=== PATIENT | female | born 1995 | race Caucasian/White ===

== ENCOUNTER 2021-03-10 19:27 | Outpatient (REF) | payer OTHER, SELFPAY | END 2021-03-10 19:28 | disposition home or self-care (01) | LOC: HO.LNP 19:27 | PROVIDERS: Visit Provider Hospitalist | DX: Z20.822 Contact with and (suspected) exposure to COVID-19 (principal) | CPT/HCPCS: U0003; U0005 ==

== ENCOUNTER 2024-03-28 20:34 | Emergency (ER) | payer OTHER, SELFPAY ==
[2024-03-28 20:51] VITALS: BP 123/97; PULSE 79; RESP 18; TEMP 36.8; O2SAT 100; BMI 26.3
--- NOTE | 2024-03-28 20:59 | ED_ITS ---
HPI - Skin/Abscess/Foreign Bdy General Chief complaint: Skin/Abscess/Foreign Body Stated complaint: Shingles? Time Seen by Provider: 03/28/24 20:44 Source: patient Mode of arrival: ambulatory Limitations: no limitations History of Present Illness ED Provider: Tracy Goldstein NP HPI narrative: Patient is a 28-year-old female presents emergency department for evaluation of a painful vesicular rash to the left clavicular region close to the midline that is beginning to scab it is quite painful and itchy, also with red bumps to the left upper chest. Denies any fevers or chills. No recent medications or contact exposures. Admits to a history of chickenpox as a child Related Data Previous Rx's ?Medication ?Instructions ?Recorded valacyclovir 1 gram tablet 1,000 mg PO TID 7 days #21 tabs 03/28/24 Allergies Allergy/AdvReac Type Severity Reaction Status Date / Time Seasonal Allergies Allergy Mild runny nose Verified 03/28/24 20:55 Review of Systems Review of Systems: Yes all other systems are reviewed and are negative PMFSH Past Medical History Attestation statement: The following information was validated with the patient. Source: old records reviewed Social History Social History (System 12/31/22 @ 13:54 by No Melendez) Patient Tobacco Use Status: Never used Tobacco Physical Exam Vital Signs: Vital Signs: Last Vital Signs Temp 98.3 F 03/28/24 20:51 Pulse 79 03/28/24 20:51 Resp 18 03/28/24 20:51 BP 123/97 H 03/28/24 20:51 Pulse Ox 100 03/28/24 20:51 O2 Del Method Room Air 03/28/24 20:51 BMI result Body Mass Index 26.3 Appearance: Alert.?Oriented to person, place and time. No acute distress.?Normal affect. Eyes: Pupils equal, round and reactive to light.? ENT: Pharynx normal.?? Neck: Normal inspection.? Neck supple.?? CVS: Heart sounds normal. Normal heart rate and rhythm.? Pulses normal.?? Respiratory: No respiratory distress.? Lung sounds clear to auscultation bilaterally? Skin: Skin warm and dry.? Normal skin color.? The left supraclavicular region has a cluster of scabbed vesicular eruptions on an erythematous base painful to touch on the C4 dermatome, early erythematous papular eruption painful to palpation at C5 dermatome Extremities: No lower extremity edema.? Neuro: Moves all extremities spontaneously. Sensation intact bilaterally. . No focal neuro deficits. Ambulates with normal steady gait. Medical Decision Making Medical Decision Making MDM Narrative: Patient is a 28-year-old female who presents emergency department for evaluation of a painful vesicular eruption to the left anterior chest as per HPI, physical exam findings consistent with herpes zoster of C4-C5 dermatome. Onset 3 days ago, though the C5 dermatome appears to be new interruption with onset yesterday evening as per patient's report. Received 1st dose of valacyclovir in the emergency department, sent remainder prescription for 7 day course to pharmacy. Discussed precautions for potential exposure, potential for post herpetic neuralgia. Presentation appears less consistent with small pox/monkey pox, no indication for sexually transmitted infection that would suggest summated gonococcal disease, no addition skin rashes or lesions or bleeding, not consistent with [id number] disease. There suspicion for contact dermatitis/folliculitis. No evidence of systemic illness, or disseminated zoster. Differential Diagnosis Differential Diagnoses: The differential diagnosis associated with the presentation includes (See narrative above) External Record Review External record reviewed: Outpatient record Prescription Management I considered prescription management with: Antiviral Discharge Plan Discharge Clinical Impression: Herpes zoster Patient Disposition: Home, Self-Care Instructions: Shingles (ED) Additional Instructions: While taking the valacyclovir please be certain that you are staying well hydrated, side effects can often include nausea, diarrhea, and headache which is typically worse when dehydrated. As discussed, the rash did not cross over to the right side of your body nor should it scab over a portion of the body and show up on the leg subsequently. Some people can develop chronic nerve pain if the medication is started late after its onset. Follow-up with your primary care doctor. Return to emergency department any new or worsening symptoms or concerns. The rash from shingles itself is not contagious, however direct contact with any fluid that may come out of the rash/blisters can result in the virus being spread to others particularly those who have never had chickenpox or never received the chickenpox vaccine. They will subsequently developed chickenpox not shingles. You should avoid children who have not received vaccination, women, or mother's. Prescriptions: New valacyclovir 1 gram tablet 1,000 mg PO TID 7 Days Qty: 21 0RF Print Language: Lithuanian
[2024-03-28] MEDS: valACYclovir HCL 1,000 MG TABLET 1000 MG PO (21:20)
--- OUTSIDE RECORDS SUMMARY | 2024-03-28 21:23 | XMS_ITS | Patient Health Record ---
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 Name Role Phone DANISH LIRIANO Unavailable [phone] OSMANIAN CHRISTIE Unavailable [phone] ALLERGIES No Known Allergies RESULTS Component Value Reference Range Notes TSH Reviewed date:12/07/2023 01:39:57 PM Interpretation: Performing Lab: Notes/Report: TSH 0.54 0.40-4.00 uIU/ml VITAMIN D, 25-HYDROXY Reviewed date:12/07/2023 01:39:57 PM Interpretation: Performing Lab: Notes/Report: VITAMIN D, 25-HYDROXY 15 30-80 ng/mL LIPID PROFILE Reviewed date:12/07/2023 01:39:57 PM Interpretation: Performing Lab: Notes/Report: CHOLESTEROL 166 0-200 mg/dL TRIGLYCERIDES 76 0-150 mg/dL CBC WITH AUTO DIFF Reviewed date:12/07/2023 01:58:39 PM Interpretation: Performing Lab: Notes/Report: WBC 5.8 4.8-10.8 x10-3/uL RBC 4.4 3.8-4.8 x10-6/uL HEMOGLOBIN 13.1 11.5-16.0 g/dL HEMATOCRIT 39.8 35-47 % MCV 90.9 79-98 fL MCH 29.9 27-32 pg MCHC 32.9 32-37 g/dL RDW 13.5 11-15 % PLT COUNT 365 130-400 x10-3/uL MEAN PLATELET VOLUME 9.6 7-11 fL NRBC % AUTO 0.0 <1 % NRBC # AUTO 0.00 <0.1 x10-3/uL COMPREHENSIVE METABOLIC PANE L Reviewed date:12/07/2023 01:39:57 PM Interpretation: Performing Lab: Notes/Report: Note Original Orderi ng Provider: DANISH LIRIANO NP GLUCOSE 84 70-100 mg/dL Reference range applicable to fasting specimens only BUN 8 5-25 mg/dL CREAT 0.78 0.5-1.1 mg/dL GLOMERULAR FILTRATION RATE 105 >60 This eGFR result was calculated using the CKD-EPI 2020 Creatinine Equation SODIUM 136 135-145 mEq/L POTASSIUM 4.3 3.5-5.5 mmol/L CHLORIDE 103 96-110 mmol/L CO2 28 21-32 mmol/L ANION GAP 5 3-11 CALCIUM 9.6 8.5-10.5 mg/dL TOTAL PROTEIN 8.0 6.0-8.0 G/dL ALBUMIN 4.2 3.2-5.0 G/dL BILI,TOTAL 0.7 0.0-1.4 mg/dL SGOT 20 10-42 U/L SGPT 20 10-60 U/L ALK PHOS 53 42-121 U/L GLYCOHEMOGLOBIN PROFILE Reviewed date:12/07/2023 02:29:18 PM Interpretation: Performing Lab: Notes/Report: GLYCATED HEMOGLOBIN A1C 5.5 <6.5 % ESTIMATED AVERAGE GLUCOSE 111 URINALYSIS Reviewed date:12/07/2023 01:02:23 PM Interpretation: Performing Lab: Notes/Report: Note Original Ordering Provider: DANISH LIRIANO NP [employer] [place] [address] Slp - Cece Escudero MD GLUCOSE, (UA) NEGATIVE NEGATIVE mg/dL BILIRUBIN, URINE NEGATIVE NEGATIVE KETONE, URINE TRACE NEGATIVE mg/dL SPECIFIC GRAVITY, URINE 1.022 1.003-1.030 BLOOD, URINE NEGATIVE NEGATIVE PH, URINE 7.0 5.0-8.0 PROTEIN, URINE TRACE <= TRACE mg/dl UROBILINOGEN, URINE 1.0 0.2-1.0 E.U./dL NITRITE, URINE NEGATIVE NEGATIVE LEUKOCYTE ESTERASE, URINE NEGATIVE NEGATIVE Note Original Ordering Provider: DANISH LIRIANO NP [employer] [address] Slp - Cece Escudero MD REASON FOR REFERRAL No Information MEDICATIONS Medication SIG (Take, Route, Frequency, Duration) Notes Start Date End Date Status Topiramate 25 MG 1 tablet Orally Once a day for 30 days 03/03/2024 Active Inflectra 100 MG as directed Intravenous Active Zepbound 15 MG/0.5ML 12.5mg Subcutaneous weekly for 30 days Active Zepbound 10 MG/0.5ML inject 10mg Subcutaneous once a week for 30 days PA approved ok to increase to 10mg from 7.5mg 07/21/2023 Not-Taking Ondansetron HCl 8 MG 1 tablet as needed Orally Once a day for 30 days Not-Taking IMMUNIZATIONS Vaccine Route Administration Date Status Comme nts influenza IM Intramuscular 02/02/2024 Administered SOCIAL HISTORY Tobacco Use: Social History Observation Description Date Details (start date - stop date) Never Smoker NA - NA Sex Assigned At : Social History Observation Description Sex Assigned At Unknown Tobacco Use/Smoking Question Answer Notes Are you a nonsmoker Section Notes: 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 safety PROBLEMS Problem Type ICD Code Onset Dates Problem Status W/U Status Risk SNOMED Code Notes Problem Vitamin D deficiency, unspecified (E55.9) Active confirmed 15104784 Problem Other obesity due to excess calories (E66.09) Active confirmed 752785236 Problem Overweight (E66.3) Active confirmed 392764251 Problem Encounter for general adult medical examination without abnormal findings (Z00.00) Active confirmed 120180380 Problem Encounter for screening for diabetes mellitus (Z13.1) Active confirmed 574381064 Problem Encounter for screening for lipoid disorders (Z13.220) Active confirmed 677272351 Problem Encounter for screening for other suspected endocrine disorder (Z13.29) Active confirmed 148018939 Problem Obesity (BMI 30-39.9) (E66.9) Active confirmed Obesity (857664226) Problem BMI 32.0-32.9,adult (Z68.32) Active confirmed BMI 30+ - obesi ty (571335663) Problem Body mass index [BMI] 30.0-30.9, adult (Z68.30) Active confirmed 370663821 Problem Ulcerative colitis without complications, unspecified location (K51.90) Active confirmed Ulcerative colitis (97259680) Problem Screening for cardiovascular condition (Z13.6) Active confirmed Screening for cardiovascular system disease (639694341) VITAL SIGNS Heart Rate 92 /min 03/03/2024 Oximetry 98 % 03/03/2024 Blood pressure diastolic 70 mm Hg 03/03/2024 Height 68 in 03/03/2024 Blood pressure systolic 100 mm Hg 03/03/2024 Weight 180 lbs 03/03/2024 BMI 27.37 kg/m2 03/03/2024 Encounters Encounter Location Date Provider Diagnosis [place] [address] 03/30/2023 DANISH MEZAT [place] [address] 10/07/2023 DANISH LIRIANO BMI 29.0-29.9,adult Z68.29 ; Overweight (BMI 25.0-29.9) E66.3 and Dietary counseling and surveillance Z71.[address] 05/12/2023 DANISH LIRIANO Other obesity due to excess calories E66.09 and Body mass index [BMI] 30.0-30.9, adult Z68.30 [place] [address] 08/10/2023 DANISH LIRIANO Overweight (BMI 25.0-29.9) E66.3 ; BMI 29.0-29.9,adult Z68.29 and Dietary counseling and surveillance Z71.[address] 12/07/2023 DANISH LIRIANO BMI 27.0-27.9,adult Z68.27 ; Overweight (BMI 25.0-29.9) E66.3 and Dietary counseling and surveillance Z71.[address] 12/09/2023 DANISH LIRIANO Overweight (BMI 25.0-29.9) E66.3 ; Annual physical exam Z00.00 ; BMI 29.0-29.9,adult Z68.29 ; Dietary counseling and surveillance Z71.3 and High risk heterosexual behavior Z72.[address] [address] 01/03/2024 AN ERIC Overweight E66.3 ; B [place] 27.0-27.9,adult Z68.27 and Nutritional counseling Z71.[address] [place] [address] 02/02/2024 AN ERIC BMI 27.0-27.9,adult Z68.27 ; Overweight E66.3 ; Nutritional counseling Z71.3 and Encounter for immunization Z23 [address] [facility] [address] [place], [place] 03/03/2024 AN ERIC BMI 27.0-27.9,adult Z68.27 ; Nutritional counseling Z71.3 and Overweight E66.3 [facility] [address] [place] [address] 04/21/2023 [facility] [address] [facility] [address] [facility] [address] [place] [address] 04/26/2023 [facility] [address] [facility] [address] [facility] [address] [place], [place] 05/20/2023 [facility] [address] [place] [address] 05/21/2023 [facility] [address] [place] [address] 06/17/2023 [facility] [address] [address] 07/21/2023 [facility] [address] [place] [address] 07/21/2023 [facility] [address] [place] [address] 07/23/2023 [facility] [address] [place] [address] 08/10/2023 [facility] Encounter for genera l adult medical examination without abnormal findings Z00.00 ; Encounter for screening for diabetes mellitus Z13.1 ; Encounter for screening for lipoid disorders Z13.220 ; Vitamin D deficiency, unspecified E55.9 and Encounter for screening for other suspected endocrine disorder Z13.29 [facility] [address] [place] [address] 08/17/2023 DANISH BORHOT Overweight (BMI 25.0-29.9) E66.3 [facility] [address] [place] [address] 09/20/2023 DANISH BORHOT Overweight (BMI 25.0-29.9) E66.3 [facility] [address] [place] [address] 09/20/2023 DANISH BORHOT Overweight (BMI 25.0-29.9) E66.3 [facility] [address] [place], [place] [address] 10/07/2023 DANISH BORHOT [facility] [address] [place] [address] 10/20/2023 DANISH BORHOT Overweight (BMI 25.0-29.9) E66.3 [facility] [address] [place] [address] 10/21/2023 DANISH BORHOT Overweight (BMI 25.0-29.9) E66.[address] [place] [address] 11/09/2023 DANISH BORHOT [facility] [address] [facility] [address] 12/16/[address] [place] [address] 01/03/2024 DAINSH BORHOT Overweight (BMI 25.0-29.9) E66.3 ASSESSMENTS Encounter Date Diagnosis Assessment Notes Treatment Notes Treatment Clinical Notes Section Notes 05/12/2023 Other obesity due to excess calories (ICD-10 - E66.09) Total time spent today was 30 minutes of which greater than 50% was spent on coordinating and counseling Weight management 05/12/2023 Currently on Wegovy 1.7, Interested in increasing to 2.4 for more appetite suppression Interested in changing perhaps to Zepbound Discussed dual incretin's and will check insurance to see which other GLP-1 GIP's are covered Patient has been found to be obese with a BMI of (30). Patient has class (1) obesity. We are a board certified obesity and weight management practice Patient has trialed behavioral modification, dietary restrictions and exercise for a minimum of 6 months The most recent [place] [employer] clinical endocrinologists and [place] [employer] guidelines recommend patients who have overweight BMI or obesity BMI, who also have metabolic syndrome, prediabetes, or at risk of developing type 2 diabetes should aim for a weight loss goal of at least 10% of the baseline body weight Patient counseled regarding effects of GLP/GIP-1 agonists, and other FDA approved wgt loss meds with regards to a multifactorial approach of weight loss as mentioned above and not solely appetite suppression. We have discussed the mechanism of GLP-1's/GIP, dual incretins, appetitite suppressants I think this would be fantastic option for her given her metabolic workup and body composition We have discussed the risks and benefits and side effects including/and not limited to Sarcopenia, intestinal obstruction, constipation, nausea, lethargy, headache Discussed importance of protein consumption for muscle maintenance as well as strength and resistance training ,probiotics, B12 complex biotin , iron and other nutrients, To help avoid telogen effluvium We have discussed the lifelong requirement of nutritional supplementation And adherence to an exercise regimen as well as importance of follow-up The patient understands and agrees There is no history of medullary thyroid cancer or multiple endocrine neoplasia There is also no history of cardiovascular disease, hypertension, palpitations, or arrhythmias In the setting of potential stimulant/amphetamine use such as phentermine We have also discussed risks and benefits, and the use of compounded medications to help offset the national shortages as well as financial implications vs trade name drugs Patient was reassured and welcomed to the practice. We discussed that we stress a hollistic medical approach with emphasis on lifestyle modification. Patient was informed that a healthy lifestyle with exercise and good eating habits can help reduce his risk of medical complications. He is explained that obesity increases his risk of diabetes, cardiovascular disease, or organ damage. We spent a lot of time discussing the relationship between food, exercise, sleep, mental health and obesity. Patient was counseled on the importance EATING local, organic food when possible. Patient was educated on clean 15 and dirty dozen. I provided information about reading books called The Food Rules by Julian Álvarez and Eat Fat Get Lean by Dr Madhu Ramos. Self education is important in the journey for weight management. Patient was offered diagnostic testing. We want to measure visceral adiposity, advanced body composition, adverse lipids, fatty acid balance, risk for heart disease and atherosclerosis, markers of inflammation and genetic susceptibility. Patient was counseled on weight management and was advised to lose weight using A. Meal Replacement Products We discussed the lifelong requirement of nutritional supplementation and adherence to an exercise regimen as well as importance of dietary follow-up Patient was educated on the replacement products called optifast. This is a good way of taking fixed amount of calories. It has been shown in studies to be ineffective weight management tool. We also recommend maintaining adequate protein intake and muscle composition, 1.5mg/kg This however has to be coupled with lifestyle intervention as well as laboratory data and EKG monitoring. It is impossible to know how a person will tolerate complete meal replacement. The side effects of meal replacement and weight loss could include syncopal attacks, dizziness, gallstones, potential cholecystectomy, possible heart attack and even . The benefits of meal replacement would be potential weight loss but no guarantees can be made. Meal replacement products are not covered by insurance. Once the patient has bought these products we cannot return them B. Lifestyle management which includes several strategies as below 1. Eat a low carbohydrate good fat good protein diet. Eliminate refined carbohydrates from the diet. Continue blood sugar and sugared beverages. Eat local organic when possible. Cook your own meals. Read food labels. None about healthy snacks. Portion control and food with low glycemic index 2. Exercise regularly. Try to get at least 6000 steps a day. Use a predominant to track activity level. Consider using apps like Profyle, myfitnesspal, lose it, stick as needed for self-monitoring and weight management. Consider group exercises. Consider hiring a tangible personal property appraiser. Regular exercise is persaud to sustainable health and prevents as a buffer against weight regain 3. Sleep is most important for healing. Tried to sleep at least 8 hours a night. A good quality sleep needs a sleep ritual with ideal room temperature of around 68. It might help to take a shower and have no electronics in the room and sleep in a very dark room without artificial light. Start her sleep routine and get up early in the morning and go to bed on time 4. Make a social connection. Surround yourself with positive people with positive energy. Connect with friends and family. 5. Get into the habit of meditating and mindfulness while doing everything. 6. Go outside and connect with nature. C. Prescription medications Patient was educated on the use of prescription medications for medical weight loss. This is a growing list and includes phentermine, Topamax,Qsymia, contrave, belviq and saxenda. All prescription medications could have side effects including but not limited to kidney stones, seizure disorder cardiac arrhythmias heart attack pancreatitis etc. etc.. Patient was encouraged to read the prescription insert and have coaching with their pharmacist and make an informed decision about taking medication and know that these medications are being prescribed with good intentions and we do not know how a patient would react to her medication. Sudden medications are FDA approved for weight loss and there is also off label use depending on patient's inability to afford medications in an attempt to lose weight D. Behavioral counseling was done to establish a relationship between food and an mood. Patient was provided information about local counseling and psychiatry and Dr Ryan at [facility]. We would like to cover regular topics and build on low glycemic eating exercise mindful eating, using yoga and meditation along with deep breathing and connecting with friends and family. E. MASS PAT reviewed, Patient's current medications were reviewed and opinion was given on medication that can cause weight gain and can be substituted F. Patient was assessed for risk with obesity including and not limiting to atherosclerosis heart disease stroke kidney disease, restrictive lung disease, irritable bowel syndrome and overall mortality. Risk of developing prediabetes diabetes and metabolic syndrome was discussed G. Therapeutic plan: We have decided to make therapeutic plan which would include choosing wisely on calories restricting portion getting active, tracking weight, getting good quality sleep and working on time management H. Patient will follow up in (4) weeks for weight management Of note, some information is being carried forward from prior records for informational purposes only and is being cited so that efficiency, safety and quality of the patient's care is not compromised This note was prepared using voice recognition software and direct typing Please excuse inadvertent hrbp or typing errors, or uncorrected word substitutions Although every attempt has been made by the provider to proofread this document, occasional misspellings and typographical errors may still be present Due to the previous pandemic, and the use of personal protective equipment (PPE) This may decrease voice recognition accuracy Inadvertent hrbp errors may occur 05/12/2023 Body mass index [BMI] 30.0-30.9, adult (ICD-10 - Z68.30) Total time spent today was 30 minutes of which greater than 50% was spent on coordinating and counseling Weight management 05/12/2023 Currently on Wegovy 1.7, Interested in increasing to 2.4 for more appetite suppression Interested in changing perhaps to Zepbound Discussed dual incretin's and will check insurance to see which other GLP-1 GIP's are covered Patient has been found to be obese with a BMI of (30). Patient has class (1) obesity. We are a board certified obesity and weight management practice Patient has trialed behavioral modification, dietary restrictions and exercise for a minimum of 6 months The most recent [place] [employer] clinical endocrinologists and [place] [employer] guidelines recommend patients who have overweight BMI or obesity BMI, who also have metabolic syndrome, prediabetes, or at risk of developing type 2 diabetes should aim for a weight loss goal of at least 10% of the baseline body weight Patient counseled regarding effects of GLP/GIP-1 agonists, and other FDA approved wgt loss meds with regards to a multifactorial approach of weight loss as mentioned above and not solely appetite suppression. We have discussed the mechanism of GLP-1's/GIP, dual incretins, appetitite suppressants I think this would be fantastic option for her given her metabolic workup and body composition We have discussed the risks and benefits and side effects including/and not limited to Sarcopenia, intestinal obstruction, constipation, nausea, lethargy, headache Discussed importance of protein consumption for muscle maintenance as well as strength and resistance training ,probiotics, B12 complex biotin , iron and other nutrients, To help avoid telogen effluvium We have discussed the lifelong requirement of nutritional supplementation And adherence to an exercise regimen as well as importance of follow-up The patient understands and agrees There is no history of medullary thyroid cancer or multiple endocrine neoplasia There is also no history of cardiovascular disease, hypertension, palpitations, or arrhythmias In the setting of potential stimulant/amphetamine use such as phentermine We have also discussed risks and benefits, and the use of compounded medications to help offset the national shortages as well as financial implications vs trade name drugs Patient was reassured and welcomed to the practice. We discussed that we stress a hollistic medical approach with emphasis on lifestyle modification. Patient was informed that a healthy lifestyle with exercise and good eating habits can help reduce his risk of medical complications. He is explained that obesity increases his risk of diabetes, cardiovascular disease, or organ damage. We spent a lot of time discussing the relationship between food, exercise, sleep, mental health and obesity. Patient was counseled on the importance EATING local, organic food when possible. Patient was educated on clean 15 and dirty dozen. I provided information about reading books called The Food Rules by Julian Álvarez and Eat Fat Get Lean by Dr Madhu Ramos. Self education is important in the journey for weight management. Patient was offered diagnostic testing. We want to measure visceral adiposity, advanced body composition, adverse lipids, fatty acid balance, risk for heart disease and atherosclerosis, markers of inflammation and genetic susceptibility. Patient was counseled on weight management and was advised to lose weight using A. Meal Replacement Products We discussed the lifelong requirement of nutritional supplementation and adherence to an exercise regimen as well as importance of dietary follow-up Patient was educated on the replacement products called optifast. This is a good way of taking fixed amount of calories. It has been shown in studies to be ineffective weight management tool. We also recommend maintaining adequate protein intake and muscle composition, 1.5mg/kg This however has to be coupled with lifestyle intervention as well as laboratory data and EKG monitoring. It is impossible to know how a person will tolerate complete meal replacement. The side effects of meal replacement and weight loss could include syncopal attacks, dizziness, gallstones, potential cholecystectomy, possible heart attack and even . The benefits of meal replacement would be potential weight loss but no guarantees can be made. Meal replacement products are not covered by insurance. Once the patient has bought these products we cannot return them B. Lifestyle management which includes several strategies as below 1. Eat a low carbohydrate good fat good protein diet. Eliminate refined carbohydrates from the diet. Continue blood sugar and sugared beverages. Eat local organic when possible. Cook your own meals. Read food labels. None about healthy snacks. Portion control and food with low glycemic index 2. Exercise regularly. Try to get at least 6000 steps a day. Use a predominant to track activity level. Consider using apps like Profyle, myfitnesspal, lose it, stick as needed for self-monitoring and weight management. Consider group exercises. Consider hiring a tangible personal property appraiser. Regular exercise is persaud to sustainable health and prevents as a buffer against weight regain 3. Sleep is most important for healing. Tried to sleep at least 8 hours a night. A good quality sleep needs a sleep ritual with ideal room temperature of around 68. It might help to take a shower and have no electronics in the room and sleep in a very dark room without artificial light. Start her sleep routine and get up early in the morning and go to bed on time 4. Make a social connection. Surround yourself with positive people with positive energy. Connect with friends and family. 5. Get into the habit of meditating and mindfulness while doing everything. 6. Go outside and connect with nature. C. Prescription medications Patient was educated on the use of prescription medications for medical weight loss. This is a growing list and includes phentermine, Topamax,Qsymia, contrave, belviq and saxenda. All prescription medications could have side effects including but not limited to kidney stones, seizure disorder cardiac arrhythmias heart attack pancreatitis etc. etc.. Patient was encouraged to read the prescription insert and have coaching with their pharmacist and make an informed decision about taking medication and know that these medications are being prescribed with good intentions and we do not know how a patient would react to her medication. Sudden medications are FDA approved for weight loss and there is also off label use depending on patient's inability to afford medications in an attempt to lose weight D. Behavioral counseling was done to establish a relationship between food and an mood. Patient was provided information about local counseling and psychiatry and Dr Ryan at [facility]. We would like to cover regular topics and build on low glycemic eating exercise mindful eating, using yoga and meditation along with deep breathing and connecting with friends and family. E. MASS PAT reviewed, Patient's current medications were reviewed and opinion was given on medication that can cause weight gain and can be substituted F. Patient was assessed for risk with obesity including and not limiting to atherosclerosis heart disease stroke kidney disease, restrictive lung disease, irritable bowel syndrome and overall mortality. Risk of developing prediabetes diabetes and metabolic syndrome was discussed G. Therapeutic plan: We have decided to make therapeutic plan which would include choosing wisely on calories restricting portion getting active, tracking weight, getting good quality sleep and working on time management H. Patient will follow up in (4) weeks for weight management Of note, some information is being carried forward from prior records for informational purposes only and is being cited so that efficiency, safety and quality of the patient's care is not compromised This note was prepared using voice recognition software and direct typing Please excuse inadvertent hrbp or typing errors, or uncorrected word substitutions Although every attempt has been made by the provider to proofread this document, occasional misspellings and typographical errors may still be present Due to the previous pandemic, and the use of personal protective equipment (PPE) This may decrease voice recognition accuracy Inadvertent hrbp errors may occur 08/10/2023 BMI 29.0-29.9,adult (ICD-10 - Z68.29) #Weight Management 08/10/2023 Thriving on dual incretin's She has left the obesity world and we have congratulated her Continue 10 milligrams with potential of increasing in the next coming weeks to 12.5 Total time spent today was 30 minutes of which greater than 50% was spent on coordinating and counseling Patient has been found to be overweight with a BMI of (29). Patient has overweight class per BMI standards We are a board certified obesity and weight management practice Patient has trialed behavioral modification, dietary restrictions and exercise for a minimum of 6 months The most recent [place] [employer]ocrin[employer] and [place] [employer] guidelines recommend patients who have overweight BMI or obesity BMI, who also have metabolic syndrome, prediabetes, or at risk of developing type 2 diabetes should aim for a weight loss goal of at least 10% of the baseline body weight Patient counseled regarding effects of GLP/GIP-1 agonists, and other FDA approved wgt loss meds with regards to a multifactorial approach of weight loss as mentioned above and not solely appetite suppression. We have discussed the mechanism of GLP-1's/GIP, dual incretins, appetitite suppressants I think this would be fantastic option for her given her metabolic workup and body composition We have discussed the risks and benefits and side effects including/and not limited to Sarcopenia, intestinal obstruction, constipation, nausea, lethargy, headache Discussed importance of protein consumption for muscle maintenance as well as strength and resistance training ,probiotics, B12 complex biotin , iron and other nutrients, To help avoid telogen effluvium We have discussed the lifelong requirement of nutritional supplementation And adherence to an exercise regimen as well as importance of follow-up The patient understands and agrees There is no history of medullary thyroid cancer or multiple endocrine neoplasia There is also no history of cardiovascular disease, hypertension, palpitations, or arrhythmias In the setting of potential stimulant/amphetamine use such as phentermine We have also discussed risks and benefits, and the use of compounded medications to help offset the national shortages as well as financial implications vs trade name drugs Patient was reassured and welcomed to the practice. We discussed that we stress a hollistic medical approach with emphasis on lifestyle modification. Patient was informed that a healthy lifestyle with exercise and good eating habits can help reduce his risk of medical complications. He is explained that obesity increases his risk of diabetes, cardiovascular disease, or organ damage. We spent a lot of time discussing the relationship between food, exercise, sleep, mental health and obesity. Patient was counseled on the importance EATING local, organic food when possible. Patient was educated on clean 15 and dirty dozen. I provided information about reading books called The Food Rules by Julian Álvarez and Eat Fat Get Lean by Dr Madhu Ramos. Self education is important in the journey for weight management. Patient was offered diagnostic testing. We want to measure visceral adiposity, advanced body composition, adverse lipids, fatty acid balance, risk for heart disease and atherosclerosis, markers of inflammation and genetic susceptibility. Patient was counseled on weight management and was advised to lose weight using A. Meal Replacement Products We discussed the lifelong requirement of nutritional supplementation and adherence to an exercise regimen as well as importance of dietary follow-up Patient was educated on the replacement products called optifast. This is a good way of taking fixed amount of calories. It has been shown in studies to be ineffective weight management tool. We also recommend maintaining adequate protein intake and muscle composition, 1.5mg/kg This however has to be coupled with lifestyle intervention as well as laboratory data and EKG monitoring. It is impossible to know how a person will tolerate complete meal replacement. The side effects of meal replacement and weight loss could include syncopal attacks, dizziness, gallstones, potential cholecystectomy, possible heart attack and even . The benefits of meal replacement would be potential weight loss but no guarantees can be made. Meal replacement products are not covered by insurance. Once the patient has bought these products we cannot return them B. Lifestyle management which includes several strategies as below 1. Eat a low carbohydrate good fat good protein diet. Eliminate refined carbohydrates from the diet. Continue blood sugar and sugared beverages. Eat local organic when possible. Cook your own meals. Read food labels. None about healthy snacks. Portion control and food with low glycemic index 2. Exercise regularly. Try to get at least 6000 steps a day. Use a predominant to track activity level. Consider using apps like Profyle, myfitnesspal, lose it, stick as needed for self-monitoring and weight management. Consider group exercises. Consider hiring a tangible personal property appraiser. Regular exercise is persaud to sustainable health and prevents as a buffer against weight regain 3. Sleep is most important for healing. Tried to sleep at least 8 hours a night. A good quality sleep needs a sleep ritual with ideal room temperature of around 68. It might help to take a shower and have no electronics in the room and sleep in a very dark room without artificial light. Start her sleep routine and get up early in the morning and go to bed on time 4. Make a social connection. Surround yourself with positive people with positive energy. Connect with friends and family. 5. Get into the habit of meditating and mindfulness while doing everything. 6. Go outside and connect with nature. C. Prescription medications Patient was educated on the use of prescription medications for medical weight loss. This is a growing list and includes phentermine, Topamax,Qsymia, contrave, belviq and saxenda. All prescription medications could have side effects including but not limited to kidney stones, seizure disorder cardiac arrhythmias heart attack pancreatitis etc. etc.. Patient was encouraged to read the prescription insert and have coaching with their pharmacist and make an informed decision about taking medication and know that these medications are being prescribed with good intentions and we do not know how a patient would react to her medication. Sudden medications are FDA approved for weight loss and there is also off label use depending on patient's inability to afford medications in an attempt to lose weight D. Behavioral counseling was done to establish a relationship between food and an mood. Patient was provided information about local counseling and psychiatry and Dr Ryan at [facility]. We would like to cover regular topics and build on low glycemic eating exercise mindful eating, using yoga and meditation along with deep breathing and connecting with friends and family. E. MASS PAT reviewed, Patient's current medications were reviewed and opinion was given on medication that can cause weight gain and can be substituted F. Patient was assessed for risk with obesity including and not limiting to atherosclerosis heart disease stroke kidney disease, restrictive lung disease, irritable bowel syndrome and overall mortality. Risk of developing prediabetes diabetes and metabolic syndrome was discussed G. Therapeutic plan: We have decided to make therapeutic plan which would include choosing wisely on calories restricting portion getting active, tracking weight, getting good quality sleep and working on time management H. Patient will follow up in (4) weeks for weight management Of note, some information is being carried forward from prior records for informational purposes only and is being cited so that efficiency, safety and quality of the patient's care is not compromised This note was prepared using voice recognition software and direct typing Please excuse inadvertent hrbp or typing errors, or uncorrected word substitutions Although every attempt has been made by the provider to proofread this document, occasional misspellings and typographical errors may still be present Due to the previous pandemic, and the use of personal protective equipment (PPE) This may decrease voice recognition accuracy Inadvertent hrbp errors may occur 08/10/2023 Overweight (BMI 25.0-29.9) (ICD-10 - E66.3) #Weight Management 08/10/2023 Thriving on dual incretin's She has left the obesity world and we have congratulated her Continue 10 milligrams with potential of increasing in the next coming weeks to 12.5 Total time spent today was 30 minutes of which greater than 50% was spent on coordinating and counseling Patient has been found to be overweight with a BMI of (29). Patient has overweight class per BMI standards We are a board certified obesity and weight management practice Patient has trialed behavioral modification, dietary restrictions and exercise for a minimum of 6 months The most recent [place] [employer]ocrin[employer] and [place] [employer] guidelines recommend patients who have overweight BMI or obesity BMI, who also have metabolic syndrome, prediabetes, or at risk of developing type 2 diabetes should aim for a weight loss goal of at least 10% of the baseline body weight Patient counseled regarding effects of GLP/GIP-1 agonists, and other FDA approved wgt loss meds with regards to a multifactorial approach of weight loss as mentioned above and not solely appetite suppression. We have discussed the mechanism of GLP-1's/GIP, dual incretins, appetitite suppressants I think this would be fantastic option for her given her metabolic workup and body composition We have discussed the risks and benefits and side effects including/and not limited to Sarcopenia, intestinal obstruction, constipation, nausea, lethargy, headache Discussed importance of protein consumption for muscle maintenance as well as strength and resistance training ,probiotics, B12 complex biotin , iron and other nutrients, To help avoid telogen effluvium We have discussed the lifelong requirement of nutritional supplementation And adherence to an exercise regimen as well as importance of follow-up The patient understands and agrees There is no history of medullary thyroid cancer or multiple endocrine neoplasia There is also no history of cardiovascular disease, hypertension, palpitations, or arrhythmias In the setting of potential stimulant/amphetamine use such as phentermine We have also discussed risks and benefits, and the use of compounded medications to help offset the national shortages as well as financial implications vs trade name drugs Patient was reassured and welcomed to the practice. We discussed that we stress a hollistic medical approach with emphasis on lifestyle modification. Patient was informed that a healthy lifestyle with exercise and good eating habits can help reduce his risk of medical complications. He is explained that obesity increases his risk of diabetes, cardiovascular disease, or organ damage. We spent a lot of time discussing the relationship between food, exercise, sleep, mental health and obesity. Patient was counseled on the importance EATING local, organic food when possible. Patient was educated on clean 15 and dirty dozen. I provided information about reading books called The Food Rules by Julian Álvarez and Eat Fat Get Lean by Dr Madhu Ramos. Self education is important in the journey for weight management. Patient was offered diagnostic testing. We want to measure visceral adiposity, advanced body composition, adverse lipids, fatty acid balance, risk for heart disease and atherosclerosis, markers of inflammation and genetic susceptibility. Patient was counseled on weight management and was advised to lose weight using A. Meal Replacement Products We discussed the lifelong requirement of nutritional supplementation and adherence to an exercise regimen as well as importance of dietary follow-up Patient was educated on the replacement products called optifast. This is a good way of taking fixed amount of calories. It has been shown in studies to be ineffective weight management tool. We also recommend maintaining adequate protein intake and muscle composition, 1.5mg/kg This however has to be coupled with lifestyle intervention as well as laboratory data and EKG monitoring. It is impossible to know how a person will tolerate complete meal replacement. The side effects of meal replacement and weight loss could include syncopal attacks, dizziness, gallstones, potential cholecystectomy, possible heart attack and even . The benefits of meal replacement would be potential weight loss but no guarantees can be made. Meal replacement products are not covered by insurance. Once the patient has bought these products we cannot return them B. Lifestyle management which includes several strategies as below 1. Eat a low carbohydrate good fat good protein diet. Eliminate refined carbohydrates from the diet. Continue blood sugar and sugared beverages. Eat local organic when possible. Cook your own meals. Read food labels. None about healthy snacks. Portion control and food with low glycemic index 2. Exercise regularly. Try to get at least 6000 steps a day. Use a predominant to track activity level. Consider using apps like Profyle, [employer], lose it, stick as needed for self-monitoring and weight management. Consider group exercises. Consider hiring a tangible personal property appraiser. Regular exercise is persaud to sustainable health and prevents as a buffer against weight regain 3. Sleep is most important for healing. Tried to sleep at least 8 hours a night. A good quality sleep needs a sleep ritual with ideal room temperature of around 68. It might help to take a shower and have no electronics in the room and sleep in a very dark room without artificial light. Start her sleep routine and get up early in the morning and go to bed on time 4. Make a social connection. Surround yourself with positive people with positive energy. Connect with friends and family. 5. Get into the habit of meditating and mindfulness while doing everything. 6. Go outside and connect with nature. C. Prescription medications Patient was educated on the use of prescription medications for medical weight loss. This is a growing list and includes phentermine, Topamax,Qsymia, contrave, belviq and saxenda. All prescription medications could have side effects including but not limited to kidney stones, seizure disorder cardiac arrhythmias heart attack pancreatitis etc. etc.. Patient was encouraged to read the prescription insert and have coaching with their pharmacist and make an informed decision about taking medication and know that these medications are being prescribed with good intentions and we do not know how a patient would react to her medication. Sudden medications are FDA approved for weight loss and there is also off label use depending on patient's inability to afford medications in an attempt to lose weight D. Behavioral counseling was done to establish a relationship between food and an mood. Patient was provided information about local counseling and psychiatry and Dr Ryan at [facility]. We would like to cover regular topics and build on low glycemic eating exercise mindful eating, using yoga and meditation along with deep breathing and connecting with friends and family. E. MASS PAT reviewed, Patient's current medications were reviewed and opinion was given on medication that can cause weight gain and can be substituted F. Patient was assessed for risk with obesity including and not limiting to atherosclerosis heart disease stroke kidney disease, restrictive lung disease, irritable bowel syndrome and overall mortality. Risk of developing prediabetes diabetes and metabolic syndrome was discussed G. Therapeutic plan: We have decided to make therapeutic plan which would include choosing wisely on calories restricting portion getting active, tracking weight, getting good quality sleep and working on time management H. Patient will follow up in (4) weeks for weight management Of note, some information is being carried forward from prior records for informational purposes only and is being cited so that efficiency, safety and quality of the patient's care is not compromised This note was prepared using voice recognition software and direct typing Please excuse inadvertent hrbp or typing errors, or uncorrected word substitutions Although every attempt has been made by the provider to proofread this document, occasional misspellings and typographical errors may still be present Due to the previous pandemic, and the use of personal protective equipment (PPE) This may decrease voice recognition accuracy Inadvertent hrbp errors may occur 08/10/2023 Encounter for general adult medical examination without abnormal findings (ICD-10 - Z00.00) 08/17/2023 Overweight (BMI 25.0-29.9) (ICD-10 - E66.3) 09/20/2023 Overweight (BMI 25.0-29.9) (ICD-10 - E66.3) 09/20/2023 Overweight (BMI 25.0-29.9) (ICD-10 - E66.3) 10/07/2023 BMI 29.0-29.9,adult (ICD-10 - Z68.29) #Weight Management 10/07/2023 Thriving on dual incretin's She has left the obesity world and we have congratulated her Continue 10 milligrams with potential of increasing in the next coming weeks to 12.5 Total time spent today was 30 minutes of which greater than 50% was spent on coordinating and counseling Patient has been found to be overweight with a BMI of (29). Patient has overweight class per BMI standards We are a board certified obesity and weight management practice Patient has trialed behavioral modification, dietary restrictions and exercise for a minimum of 6 months The most recent [place] [employer]ocrin[employer] and [place] [employer] guidelines recommend patients who have overweight BMI or obesity BMI, who also have metabolic syndrome, prediabetes, or at risk of developing type 2 diabetes should aim for a weight loss goal of at least 10% of the baseline body weight Patient counseled regarding effects of GLP/GIP-1 agonists, and other FDA approved wgt loss meds with regards to a multifactorial approach of weight loss as mentioned above and not solely appetite suppression. We have discussed the mechanism of GLP-1's/GIP, dual incretins, appetitite suppressants I think this would be fantastic option for her given her metabolic workup and body composition We have discussed the risks and benefits and side effects including/and not limited to Sarcopenia, intestinal obstruction, constipation, nausea, lethargy, headache Discussed importance of protein consumption for muscle maintenance as well as strength and resistance training ,probiotics, B12 complex biotin , iron and other nutrients, To help avoid telogen effluvium We have discussed the lifelong requirement of nutritional supplementation And adherence to an exercise regimen as well as importance of follow-up The patient understands and agrees There is no history of medullary thyroid cancer or multiple endocrine neoplasia There is also no history of cardiovascular disease, hypertension, palpitations, or arrhythmias In the setting of potential stimulant/amphetamine use such as phentermine We have also discussed risks and benefits, and the use of compounded medications to help offset the national shortages as well as financial implications vs trade name drugs Patient was reassured and welcomed to the practice. We discussed that we stress a hollistic medical approach with emphasis on lifestyle modification. Patient was informed that a healthy lifestyle with exercise and good eating habits can help reduce his risk of medical complications. He is explained that obesity increases his risk of diabetes, cardiovascular disease, or organ damage. We spent a lot of time discussing the relationship between food, exercise, sleep, mental health and obesity. Patient was counseled on the importance EATING local, organic food when possible. Patient was educated on clean 15 and dirty dozen. I provided information about reading books called The Food Rules by Julian Álvarez and Eat Fat Get Lean by Dr Madhu Ramos. Self education is important in the journey for weight management. Patient was offered diagnostic testing. We want to measure visceral adiposity, advanced body composition, adverse lipids, fatty acid balance, risk for heart disease and atherosclerosis, markers of inflammation and genetic susceptibility. Patient was counseled on weight management and was advised to lose weight using A. Meal Replacement Products We discussed the lifelong requirement of nutritional supplementation and adherence to an exercise regimen as well as importance of dietary follow-up Patient was educated on the replacement products called optifast. This is a good way of taking fixed amount of calories. It has been shown in studies to be ineffective weight management tool. We also recommend maintaining adequate protein intake and muscle composition, 1.5mg/kg This however has to be coupled with lifestyle intervention as well as laboratory data and EKG monitoring. It is impossible to know how a person will tolerate complete meal replacement. The side effects of meal replacement and weight loss could include syncopal attacks, dizziness, gallstones, potential cholecystectomy, possible heart attack and even . The benefits of meal replacement would be potential weight loss but no guarantees can be made. Meal replacement products are not covered by insurance. Once the patient has bought these products we cannot return them B. Lifestyle management which includes several strategies as below 1. Eat a low carbohydrate good fat good protein diet. Eliminate refined carbohydrates from the diet. Continue blood sugar and sugared beverages. Eat local organic when possible. Cook your own meals. Read food labels. None about healthy snacks. Portion control and food with low glycemic index 2. Exercise regularly. Try to get at least 6000 steps a day. Use a predominant to track activity level. Consider using apps like Profyle, my[employer]Barn[employer]pal, lose it, stick as needed for self-monitoring and weight management. Consider group exercises. Consider hiring a tangible personal property appraiser. Regular exercise is persaud to sustainable health and prevents as a buffer against weight regain 3. Sleep is most important for healing. Tried to sleep at least 8 hours a night. A good quality sleep needs a sleep ritual with ideal room temperature of around 68. It might help to take a shower and have no electronics in the room and sleep in a very dark room without artificial light. Start her sleep routine and get up early in the morning and go to bed on time 4. Make a social connection. Surround yourself with positive people with positive energy. Connect with friends and family. 5. Get into the habit of meditating and mindfulness while doing everything. 6. Go outside and connect with nature. C. Prescription medications Patient was educated on the use of prescription medications for medical weight loss. This is a growing list and includes phentermine, Topamax,Qsymia, contrave, belviq and saxenda. All prescription medications could have side effects including but not limited to kidney stones, seizure disorder cardiac arrhythmias heart attack pancreatitis etc. etc.. Patient was encouraged to read the prescription insert and have coaching with their pharmacist and make an informed decision about taking medication and know that these medications are being prescribed with good intentions and we do not know how a patient would react to her medication. Sudden medications are FDA approved for weight loss and there is also off label use depending on patient's inability to afford medications in an attempt to lose weight D. Behavioral counseling was done to establish a relationship between food and an mood. Patient was provided information about local counseling and psychiatry and Dr Ryan at [facility]. We would like to cover regular topics and build on low glycemic eating exercise mindful eating, using yoga and meditation along with deep breathing and connecting with friends and family. E. MASS PAT reviewed, Patient's current medications were reviewed and opinion was given on medication that can cause weight gain and can be substituted F. Patient was assessed for risk with obesity including and not limiting to atherosclerosis heart disease stroke kidney disease, restrictive lung disease, irritable bowel syndrome and overall mortality. Risk of developing prediabetes diabetes and metabolic syndrome was discussed G. Therapeutic plan: We have decided to make therapeutic plan which would include choosing wisely on calories restricting portion getting active, tracking weight, getting good quality sleep and working on time management H. Patient will follow up in (4) weeks for weight management Of note, some information is being carried forward from prior records for informational purposes only and is being cited so that efficiency, safety and quality of the patient's care is not compromised This note was prepared using voice recognition software and direct typing Please excuse inadvertent hrbp or typing errors, or uncorrected word substitutions Although every attempt has been made by the provider to proofread this document, occasional misspellings and typographical errors may still be present Due to the previous pandemic, and the use of personal protective equipment (PPE) This may decrease voice recognition accuracy Inadvertent hrbp errors may occur 10/20/2023 Overweight (BMI 25.0-29.9) (ICD-10 - E66.3) 10/21/2023 Overweight (BMI 25.0-29.9) (ICD-10 - E66.3) 12/07/2023 BMI 27.0-27.9,adult (ICD-10 - Z68.27) #Weight Management 12/07/2023 Thriving on dual incretin's cont 12.5mg discussed maintenance dosing as approaching target goal weight Total time spent today was 30 minutes of which greater than 50% was spent on coordinating and counseling Patient has been found to be overweight with a BMI of (27). Patient has overweight class per BMI standards We are a board certified obesity and weight management practice Patient has trialed behavioral modification, dietary restrictions and exercise for a minimum of 6 months The most recent [place] [employer]ocrin[employer] and [place] [employer] guidelines recommend patients who have overweight BMI or obesity BMI, who also have metabolic syndrome, prediabetes, or at risk of developing type 2 diabetes should aim for a weight loss goal of at least 10% of the baseline body weight Patient counseled regarding effects of GLP/GIP-1 agonists, and other FDA approved wgt loss meds with regards to a multifactorial approach of weight loss as mentioned above and not solely appetite suppression. We have discussed the mechanism of GLP-1's/GIP, dual incretins, appetitite suppressants I think this would be fantastic option for her given her metabolic workup and body composition We have discussed the risks and benefits and side effects including/and not limited to Sarcopenia, intestinal obstruction, constipation, nausea, lethargy, headache Discussed importance of protein consumption for muscle maintenance as well as strength and resistance training ,probiotics, B12 complex biotin , iron and other nutrients, To help avoid telogen effluvium We have discussed the lifelong requirement of nutritional supplementation And adherence to an exercise regimen as well as importance of follow-up The patient understands and agrees There is no history of medullary thyroid cancer or multiple endocrine neoplasia There is also no history of cardiovascular disease, hypertension, palpitations, or arrhythmias In the setting of potential stimulant/amphetamine use such as phentermine We have also discussed risks and benefits, and the use of compounded medications to help offset the national shortages as well as financial implications vs trade name drugs Patient was reassured and welcomed to the practice. We discussed that we stress a hollistic medical approach with emphasis on lifestyle modification. Patient was informed that a healthy lifestyle with exercise and good eating habits can help reduce his risk of medical complications. He is explained that obesity increases his risk of diabetes, cardiovascular disease, or organ damage. We spent a lot of time discussing the relationship between food, exercise, sleep, mental health and obesity. Patient was counseled on the importance EATING local, organic food when possible. Patient was educated on clean 15 and dirty dozen. I provided information about reading books called The Food Rules by Julian Álvarez and Eat Fat Get Lean by Dr Madhu Ramos. Self education is important in the journey for weight management. Patient was offered diagnostic testing. We want to measure visceral adiposity, advanced body composition, adverse lipids, fatty acid balance, risk for heart disease and atherosclerosis, markers of inflammation and genetic susceptibility. Patient was counseled on weight management and was advised to lose weight using A. Meal Replacement Products We discussed the lifelong requirement of nutritional supplementation and adherence to an exercise regimen as well as importance of dietary follow-up Patient was educated on the replacement products called optifast. This is a good way of taking fixed amount of calories. It has been shown in studies to be ineffective weight management tool. We also recommend maintaining adequate protein intake and muscle composition, 1.5mg/kg This however has to be coupled with lifestyle intervention as well as laboratory data and EKG monitoring. It is impossible to know how a person will tolerate complete meal replacement. The side effects of meal replacement and weight loss could include syncopal attacks, dizziness, gallstones, potential cholecystectomy, possible heart attack and even . The benefits of meal replacement would be potential weight loss but no guarantees can be made. Meal replacement products are not covered by insurance. Once the patient has bought these products we cannot return them B. Lifestyle management which includes several strategies as below 1. Eat a low carbohydrate good fat good protein diet. Eliminate refined carbohydrates from the diet. Continue blood sugar and sugared beverages. Eat local organic when possible. Cook your own meals. Read food labels. None about healthy snacks. Portion control and food with low glycemic index 2. Exercise regularly. Try to get at least 6000 steps a day. Use a predominant to track activity level. Consider using apps like [employer], myfitnesspal, lose it, stick as needed for self-monitoring and weight management. Consider group exercises. Consider hiring a tangible personal property appraiser. Regular exercise is persaud to sustainable health and prevents as a buffer against weight regain 3. Sleep is most important for healing. Tried to sleep at least 8 hours a night. A good quality sleep needs a sleep ritual with ideal room temperature of around 68. It might help to take a shower and have no electronics in the room and sleep in a very dark room without artificial light. Start her sleep routine and get up early in the morning and go to bed on time 4. Make a social connection. Surround yourself with positive people with positive energy. Connect with friends and family. 5. Get into the habit of meditating and mindfulness while doing everything. 6. Go outside and connect with nature. C. Prescription medications Patient was educated on the use of prescription medications for medical weight loss. This is a growing list and includes phentermine, Topamax,Qsymia, contrave, belviq and saxenda. All prescription medications could have side effects including but not limited to kidney stones, seizure disorder cardiac arrhythmias heart attack pancreatitis etc. etc.. Patient was encouraged to read the prescription insert and have coaching with their pharmacist and make an informed decision about taking medication and know that these medications are being prescribed with good intentions and we do not know how a patient would react to her medication. Sudden medications are FDA approved for weight loss and there is also off label use depending on patient's inability to afford medications in an attempt to lose weight D. Behavioral counseling was done to establish a relationship between food and an mood. Patient was provided information about local counseling and psychiatry and Dr Ryan at [facility]. We would like to cover regular topics and build on low glycemic eating exercise mindful eating, using yoga and meditation along with deep breathing and connecting with friends and family. E. MASS PAT reviewed, Patient's current medications were reviewed and opinion was given on medication that can cause weight gain and can be substituted F. Patient was assessed for risk with obesity including and not limiting to atherosclerosis heart disease stroke kidney disease, restrictive lung disease, irritable bowel syndrome and overall mortality. Risk of developing prediabetes diabetes and metabolic syndrome was discussed G. Therapeutic plan: We have decided to make therapeutic plan which would include choosing wisely on calories restricting portion getting active, tracking weight, getting good quality sleep and working on time management H. Patient will follow up in (4) weeks for weight management Of note, some information is being carried forward from prior records for informational purposes only and is being cited so that efficiency, safety and quality of the patient's care is not compromised This note was prepared using voice recognition software and direct typing Please excuse inadvertent hrbp or typing errors, or uncorrected word substitutions Although every attempt has been made by the provider to proofread this document, occasional misspellings and typographical errors may still be present Due to the previous pandemic, and the use of personal protective equipment (PPE) This may decrease voice recognition accuracy Inadvertent hrbp errors may occur 12/09/2023 Overweight (BMI 25.0-29.9) (ICD-10 - E66.3) Acute Concerns/Problem List: 12/09/2023 STD testing [employer] referall Thriving on dual incretin's She has left the obesity world and we have congratulated her Continue 12.5 milligrams zbound Total time spent today was 30 minutes of which greater than 50% was spent on coordinating and counseling Patient has been found to be overweight with a BMI of (29). Patient has overweight class per BMI standards We are a board certified obesity and weight management practice Patient has trialed behavioral modification, dietary restrictions and exercise for a minimum of 6 months The most recent [place] [employer]ocrinologists and [place] [employer] guidelines recommend patients who have overweight BMI or obesity BMI, who also have metabolic syndrome, prediabetes, or at risk of developing type 2 diabetes should aim for a weight loss goal of at least 10% of the baseline body weight Patient counseled regarding effects of GLP/GIP-1 agonists, and other FDA approved wgt loss meds with regards to a multifactorial approach of weight loss as mentioned above and not solely appetite suppression. We have discussed the mechanism of GLP-1's/GIP, dual incretins, appetitite suppressants I think this would be fantastic option for her given her metabolic workup and body composition We have discussed the risks and benefits and side effects including/and not limited to Sarcopenia, intestinal obstruction, constipation, nausea, lethargy, headache Discussed importance of protein consumption for muscle maintenance as well as strength and resistance training ,probiotics, B12 complex biotin , iron and other nutrients, To help avoid telogen effluvium We have discussed the lifelong requirement of nutritional supplementation And adherence to an exercise regimen as well as importance of follow-up The patient understands and agrees There is no history of medullary thyroid cancer or multiple endocrine neoplasia There is also no history of cardiovascular disease, hypertension, palpitations, or arrhythmias In the setting of potential stimulant/amphetamine use such as phentermine We have also discussed risks and benefits, and the use of compounded medications to help offset the national shortages as well as financial implications vs trade name drugs Patient was reassured and welcomed to the practice. We discussed that we stress a hollistic medical approach with emphasis on lifestyle modification. Patient was informed that a healthy lifestyle with exercise and good eating habits can help reduce his risk of medical complications. He is explained that obesity increases his risk of diabetes, cardiovascular disease, or organ damage. We spent a lot of time discussing the relationship between food, exercise, sleep, mental health and obesity. Patient was counseled on the importance EATING local, organic food when possible. Patient was educated on clean 15 and dirty dozen. I provided information about reading books called The Food Rules by Julian Álvarez and Eat Fat Get Lean by Dr Madhu Ramos. Self education is important in the journey for weight management. Patient was offered diagnostic testing. We want to measure visceral adiposity, advanced body composition, adverse lipids, fatty acid balance, risk for heart disease and atherosclerosis, markers of inflammation and genetic susceptibility. Patient was counseled on weight management and was advised to lose weight using A. Meal Replacement Products We discussed the lifelong requirement of nutritional supplementation and adherence to an exercise regimen as well as importance of dietary follow-up Patient was educated on the replacement products called optifast. This is a good way of taking fixed amount of calories. It has been shown in studies to be ineffective weight management tool. We also recommend maintaining adequate protein intake and muscle composition, 1.5mg/kg This however has to be coupled with lifestyle intervention as well as laboratory data and EKG monitoring. It is impossible to know how a person will tolerate complete meal replacement. The side effects of meal replacement and weight loss could include syncopal attacks, dizziness, gallstones, potential cholecystectomy, possible heart attack and even . The benefits of meal replacement would be potential weight loss but no guarantees can be made. Meal replacement products are not covered by insurance. Once the patient has bought these products we cannot return them B. Lifestyle management which includes several strategies as below 1. Eat a low carbohydrate good fat good protein diet. Eliminate refined carbohydrates from the diet. Continue blood sugar and sugared beverages. Eat local organic when possible. Cook your own meals. Read food labels. None about healthy snacks. Portion control and food with low glycemic index 2. Exercise regularly. Try to get at least 6000 steps a day. Use a predominant to track activity level. Consider using apps like Profyle, [employer]al, lose it, stick as needed for self-monitoring and weight management. Consider group exercises. Consider hiring a tangible personal property appraiser. Regular exercise is persaud to sustainable health and prevents as a buffer against weight regain 3. Sleep is most important for healing. Tried to sleep at least 8 hours a night. A good quality sleep needs a sleep ritual with ideal room temperature of around 68. It might help to take a shower and have no electronics in the room and sleep in a very dark room without artificial light. Start her sleep routine and get up early in the morning and go to bed on time 4. Make a social connection. Surround yourself with positive people with positive energy. Connect with friends and family. 5. Get into the habit of meditating and mindfulness while doing everything. 6. Go outside and connect with nature. C. Prescription medications Patient was educated on the use of prescription medications for medical weight loss. This is a growing list and includes phentermine, Topamax,Qsymia, contrave, belviq and saxenda. All prescription medications could have side effects including but not limited to kidney stones, seizure disorder cardiac arrhythmias heart attack pancreatitis etc. etc.. Patient was encouraged to read the prescription insert and have coaching with their pharmacist and make an informed decision about taking medication and know that these medications are being prescribed with good intentions and we do not know how a patient would react to her medication. Sudden medications are FDA approved for weight loss and there is also off label use depending on patient's inability to afford medications in an attempt to lose weight D. Behavioral counseling was done to establish a relationship between food and an mood. Patient was provided information about local counseling and psychiatry and Dr Ryan at [facility]. We would like to cover regular topics and build on low glycemic eating exercise mindful eating, using yoga and meditation along with deep breathing and connecting with friends and family. E. MASS PAT reviewed, Patient's current medications were reviewed and opinion was given on medication that can cause weight gain and can be substituted F. Patient was assessed for risk with obesity including and not limiting to atherosclerosis heart disease stroke kidney disease, restrictive lung disease, irritable bowel syndrome and overall mortality. Risk of developing prediabetes diabetes and metabolic syndrome was discussed G. Therapeutic plan: We have decided to make therapeutic plan which would include choosing wisely on calories restricting portion getting active, tracking weight, getting good quality sleep and working on time management H. Patient will follow up in (4) weeks for weight management Of note, some information is being carried forward from prior records for informational purposes only and is being cited so that efficiency, safety and quality of the patient's care is not compromised This note was prepared using voice recognition software and direct typing Please excuse inadvertent hrbp or typing errors, or uncorrected word substitutions Although every attempt has been made by the provider to proofread this document, occasional misspellings and typographical errors may still be present Due to the previous pandemic, and the use of personal protective equipment (PPE) This may decrease voice recognition accuracy Inadvertent hrbp errors may occur 01/03/2024 Overweight (ICD-10 - E66.3) Patient is here for weight management follow-up. We focused on significance of healthy lifestyle changes. We talked about need to track steps with goal between 6000-10,000 steps daily, focus on portion control, read food labels, get adequate sleep between 7 to 8 hours, get adequate rest to the body, meditate, frequent nutritious meals including vegetables and healthy choices of lean meats, fish, and elimination of refined carbohydrates. We also talked about mindfulness and mindful eating. Particular focus was on improving protein consumption and incorporating some resistance training to maintain and build muscle mass.. Total time spent with 30 minutes with greater than 50% spent on counseling and coordinating care. 01/03/2024: Weight 181 pounds, BMI 27.52. Seca scan unable to be completed today, equipment is malfunctioning. Patient demonstrates understanding. Has been on 12.5 mg of Zepbound for the past 3 months, reports no side effects, however states that appetite is less suppressed at this time. Has had cravings and has been feeling hungrier over the past several weeks. Walking for exercise. Will increase dose of Zepbound to 15 mg once weekly subcutaneous injection. Advised on proper use of medication and expected side effect profile including but not limited to nausea, constipation, acid reflux, and fatigue. She will follow-up in the office in approximately 4 weeks for weight management. All questions have been answered to patient's satisfaction. Patient verbalized understanding of diagnosis and treatments explained. Advised to call sooner prior to next visit it any questions/concerns arise. Case discussed with collaborating physician Oscar Irizarry who reviewed the assessment and plan. Chart, medications, labs, vital signs reviewed. Dictation was accomplished with the use of [employer] voice recognition software, which is prone to medical misidentifications and grammatical errors. This are unintentional and the practitioner does try to identify and correct these, but some could still be present. Please do not hesitate to contact practitioner for clarification. 01/03/2024 BMI 27.0-27.9,adult (ICD-10 - Z68.27) Patient is here for weight management follow-up. We focused on significance of healthy lifestyle changes. We talked about need to track steps with goal between 6000-10,000 steps daily, focus on portion control, read food labels, get adequate sleep between 7 to 8 hours, get adequate rest to the body, meditate, frequent nutritious meals including vegetables and healthy choices of lean meats, fish, and elimination of refined carbohydrates. We also talked about mindfulness and mindful eating. Particular focus was on improving protein consumption and incorporating some resistance training to maintain and build muscle mass.. Total time spent with 30 minutes with greater than 50% spent on counseling and coordinating care. 01/03/2024: Weight 181 pounds, BMI 27.52. Seca scan unable to be completed today, equipment is malfunctioning. Patient demonstrates understanding. Has been on 12.5 mg of Zepbound for the past 3 months, reports no side effects, however states that appetite is less suppressed at this time. Has had cravings and has been feeling hungrier over the past several weeks. Walking for exercise. Will increase dose of Zepbound to 15 mg once weekly subcutaneous injection. Advised on proper use of medication and expected side effect profile including but not limited to nausea, constipation, acid reflux, and fatigue. She will follow-up in the office in approximately 4 weeks for weight management. All questions have been answered to patient's satisfaction. Patient verbalized understanding of diagnosis and treatments explained. Advised to call sooner prior to next visit it any questions/concerns arise. Case discussed with collaborating physician Oscar Irizarry who reviewed the assessment and plan. Chart, medications, labs, vital signs reviewed. Dictation was accomplished with the use of [employer] voice recognition software, which is prone to medical misidentifications and grammatical errors. This are unintentional and the practitioner does try to identify and correct these, but some could still be present. Please do not hesitate to contact practitioner for clarification. 12/09/2023 Annual physical exam (ICD-10 - Z00.00) Acute Concerns/Problem List: 12/09/2023 STD testing [employer] referall Thriving on dual incretin's She has left the obesity world and we have congratulated her Continue 12.5 milligrams zbound Total time spent today was 30 minutes of which greater than 50% was spent on coordinating and counseling Patient has been found to be overweight with a BMI of (29). Patient has overweight class per BMI standards We are a board certified obesity and weight management practice Patient has trialed behavioral modification, dietary restrictions and exercise for a minimum of 6 months The most recent [place] [employer]ocrin[employer] and [place] [employer] guidelines recommend patients who have overweight BMI or obesity BMI, who also have metabolic syndrome, prediabetes, or at risk of developing type 2 diabetes should aim for a weight loss goal of at least 10% of the baseline body weight Patient counseled regarding effects of GLP/GIP-1 agonists, and other FDA approved wgt loss meds with regards to a multifactorial approach of weight loss as mentioned above and not solely appetite suppression. We have discussed the mechanism of GLP-1's/GIP, dual incretins, appetitite suppressants I think this would be fantastic option for her given her metabolic workup and body composition We have discussed the risks and benefits and side effects including/and not limited to Sarcopenia, intestinal obstruction, constipation, nausea, lethargy, headache Discussed importance of protein consumption for muscle maintenance as well as strength and resistance training ,probiotics, B12 complex biotin , iron and other nutrients, To help avoid telogen effluvium We have discussed the lifelong requirement of nutritional supplementation And adherence to an exercise regimen as well as importance of follow-up The patient understands and agrees There is no history of medullary thyroid cancer or multiple endocrine neoplasia There is also no history of cardiovascular disease, hypertension, palpitations, or arrhythmias In the setting of potential stimulant/amphetamine use such as phentermine We have also discussed risks and benefits, and the use of compounded medications to help offset the national shortages as well as financial implications vs trade name drugs Patient was reassured and welcomed to the practice. We discussed that we stress a hollistic medical approach with emphasis on lifestyle modification. Patient was informed that a healthy lifestyle with exercise and good eating habits can help reduce his risk of medical complications. He is explained that obesity increases his risk of diabetes, cardiovascular disease, or organ damage. We spent a lot of time discussing the relationship between food, exercise, sleep, mental health and obesity. Patient was counseled on the importance EATING local, organic food when possible. Patient was educated on clean 15 and dirty dozen. I provided information about reading books called The Food Rules by Julian Álvarez and Eat Fat Get Lean by Dr Madhu Ramos. Self education is important in the journey for weight management. Patient was offered diagnostic testing. We want to measure visceral adiposity, advanced body composition, adverse lipids, fatty acid balance, risk for heart disease and atherosclerosis, markers of inflammation and genetic susceptibility. Patient was counseled on weight management and was advised to lose weight using A. Meal Replacement Products We discussed the lifelong requirement of nutritional supplementation and adherence to an exercise regimen as well as importance of dietary follow-up Patient was educated on the replacement products called optifast. This is a good way of taking fixed amount of calories. It has been shown in studies to be ineffective weight management tool. We also recommend maintaining adequate protein intake and muscle composition, 1.5mg/kg This however has to be coupled with lifestyle intervention as well as laboratory data and EKG monitoring. It is impossible to know how a person will tolerate complete meal replacement. The side effects of meal replacement and weight loss could include syncopal attacks, dizziness, gallstones, potential cholecystectomy, possible heart attack and even . The benefits of meal replacement would be potential weight loss but no guarantees can be made. Meal replacement products are not covered by insurance. Once the patient has bought these products we cannot return them B. Lifestyle management which includes several strategies as below 1. Eat a low carbohydrate good fat good protein diet. Eliminate refined carbohydrates from the diet. Continue blood sugar and sugared beverages. Eat local organic when possible. Cook your own meals. Read food labels. None about healthy snacks. Portion control and food with low glycemic index 2. Exercise regularly. Try to get at least 6000 steps a day. Use a predominant to track activity level. Consider using apps like Profyle, myfitnesspal, lose it, stick as needed for self-monitoring and weight management. Consider group exercises. Consider hiring a tangible personal property appraiser. Regular exercise is persaud to sustainable health and prevents as a buffer against weight regain 3. Sleep is most important for healing. Tried to sleep at least 8 hours a night. A good quality sleep needs a sleep ritual with ideal room temperature of around 68. It might help to take a shower and have no electronics in the room and sleep in a very dark room without artificial light. Start her sleep routine and get up early in the morning and go to bed on time 4. Make a social connection. Surround yourself with positive people with positive energy. Connect with friends and family. 5. Get into the habit of meditating and mindfulness while doing everything. 6. Go outside and connect with nature. C. Prescription medications Patient was educated on the use of prescription medications for medical weight loss. This is a growing list and includes phentermine, Topamax,Qsymia, contrave, belviq and saxenda. All prescription medications could have side effects including but not limited to kidney stones, seizure disorder cardiac arrhythmias heart attack pancreatitis etc. etc.. Patient was encouraged to read the prescription insert and have coaching with their pharmacist and make an informed decision about taking medication and know that these medications are being prescribed with good intentions and we do not know how a patient would react to her medication. Sudden medications are FDA approved for weight loss and there is also off label use depending on patient's inability to afford medications in an attempt to lose weight D. Behavioral counseling was done to establish a relationship between food and an mood. Patient was provided information about local counseling and psychiatry and Dr Ryan at [facility]. We would like to cover regular topics and build on low glycemic eating exercise mindful eating, using yoga and meditation along with deep breathing and connecting with friends and family. E. MASS PAT reviewed, Patient's current medications were reviewed and opinion was given on medication that can cause weight gain and can be substituted F. Patient was assessed for risk with obesity including and not limiting to atherosclerosis heart disease stroke kidney disease, restrictive lung disease, irritable bowel syndrome and overall mortality. Risk of developing prediabetes diabetes and metabolic syndrome was discussed G. Therapeutic plan: We have decided to make therapeutic plan which would include choosing wisely on calories restricting portion getting active, tracking weight, getting good quality sleep and working on time management H. Patient will follow up in (4) weeks for weight management Of note, some information is being carried forward from prior records for informational purposes only and is being cited so that efficiency, safety and quality of the patient's care is not compromised This note was prepared using voice recognition software and direct typing Please excuse inadvertent hrbp or typing errors, or uncorrected word substitutions Although every attempt has been made by the provider to proofread this document, occasional misspellings and typographical errors may still be present Due to the previous pandemic, and the use of personal protective equipment (PPE) This may decrease voice recognition accuracy Inadvertent hrbp errors may occur 01/03/2024 Overweight (BMI 25.0-29.9) (ICD-10 - E66.3) 02/02/2024 BMI 27.0-27.9,adult (ICD-10 - Z68.27) Patient is here for weight management follow-up. We focused on significance of healthy lifestyle changes. We talked about need to track steps with goal between 6000-10,000 steps daily, focus on portion control, read food labels, get adequate sleep between 7 to 8 hours, get adequate rest to the body, meditate, frequent nutritious meals including vegetables and healthy choices of lean meats, fish, and elimination of refined carbohydrates. We also talked about mindfulness and mindful eating. Particular focus was on improving protein consumption and incorporating some resistance training to maintain and build muscle mass.. Total time spent with 30 minutes with greater than 50% spent on counseling and coordinating care. 01/03/2024: Weight 181 pounds, BMI 27.52. Seca scan unable to be completed today, equipment is malfunctioning. Patient demonstrates understanding. Has been on 12.5 mg of Zepbound for the past 3 months, reports no side effects, however states that appetite is less suppressed at this time. Has had cravings and has been feeling hungrier over the past several weeks. Walking for exercise. Will increase dose of Zepbound to 15 mg once weekly subcutaneous injection. Advised on proper use of medication and expected side effect profile including but not limited to nausea, constipation, acid reflux, and fatigue. She will follow-up in the office in approximately 4 weeks for weight management. 02/02/2024: Weight 180 pounds, BMI 27.37. Seca scan completed interpreted with the patient today. She has a slight increase in fat mass from 63-66 pounds. Maintaining good muscle mass. Small increase from 1.5-1.7 for visceral adipose tissue index. Has been on Zepbound 15 mg once weekly. Tolerating medication well. Reports good suppression of her appetite. Has introduced cycling into her exercise routine. Will continue current dose. Discussed proper use of the medication including rotating injection sites and expected side effect profile. She will follow-up the office in approximately 1 month for continued weight management. All patient questions answered at this time. All questions have been answered to patient's satisfaction. Patient verbalized understanding of diagnosis and treatments explained. Advised to call sooner prior to next visit it any questions/concerns arise. Case discussed with collaborating physician Oscar Irizarry who reviewed the assessment and plan. Chart, medications, labs, vital signs reviewed. Dictation was accomplished with the use of [employer] voice recognition software, which is prone to medical misidentifications and grammatical errors. This are unintentional and the practitioner does try to identify and correct these, but some could still be present. Please do not hesitate to contact practitioner for clarification. 03/03/2024 BMI 27.0-27.9,adult (ICD-10 - Z68.27) Patient is here for weight management follow-up. We focused on significance of healthy lifestyle changes. We talked about need to track steps with goal between 6000-10,000 steps daily, focus on portion control, read food labels, get adequate sleep between 7 to 8 hours, get adequate rest to the body, meditate, frequent nutritious meals including vegetables and healthy choices of lean meats, fish, and elimination of refined carbohydrates. We also talked about mindfulness and mindful eating. Particular focus was on adding adjunctive topiramate to aid weight loss. Total time spent with 30 minutes with greater than 50% spent on counseling and coordinating care. 11/30/2022: Weight 213.2 pounds, BMI 32.41 02/19/2023: Weight 209.7 pounds, BMI 31.88 03/23/2023: Weight 209.8 pounds, BMI 31.9 04/22/2023: Weight 201 pounds, BMI 30.56 08/10/2023: Weight 192 pounds, BMI 29.19 12/07/2023: Weight 181 pounds, BMI 27.5 to 01/03/2024: Weight 181 pounds, BMI 27.52. Seca scan unable to be completed today, equipment is malfunctioning. Patient demonstrates understanding. Has been on 12.5 mg of Zepbound for the past 3 months, reports no side effects, however states that appetite is less suppressed at this time. Has had cravings and has been feeling hungrier over the past several weeks. Walking for exercise. Will increase dose of Zepbound to 15 mg once weekly subcutaneous injection. Advised on proper use of medication and expected side effect profile including but not limited to nausea, constipation, acid reflux, and fatigue. She will follow-up in the office in approximately 4 weeks for weight management. 02/02/2024: Weight 180 pounds, BMI 27.37. Seca scan completed interpreted with the patient today. She has a slight increase in fat mass from 63-66 pounds. Maintaining good muscle mass. Small increase from 1.5-1.7 for visceral adipose tissue index. Has been on Zepbound 15 mg once weekly. Tolerating medication well. Reports good suppression of her appetite. Has introduced cycling into her exercise routine. Will continue current dose. Discussed proper use of the medication including rotating injection sites and expected side effect profile. She will follow-up the office in approximately 1 month for continued weight management. All patient questions answered at this time. 03/03/2024: Weight 180 pounds, BMI 27.37. Seca scan completed today and interpreted with the patient. Patient has been plateauing for the past several months with no significant change in weight. No change in fat mass since previous visit. Currently on Zepbound 15 mg once weekly. Reports no side effects at this time. Because she has been plateauing will initiate topiramate as adjunctive medication for further weight loss. Advised that the medication has a effect of appetite suppression. Advised to take the medication once daily and if she tolerates well after 1 week can increase dose to 2 tablets once daily totaling 50 mg. Discussed expected side effect profile including but not limited to abdominal pain, nausea, diarrhea, dizziness. She will follow-up in the office in approximately 4 weeks for continued weight management. All questions have been answered to patient's satisfaction. Patient verbalized understanding of diagnosis and treatments explained. Advised to call sooner prior to next visit it any questions/concerns arise. Case discussed with collaborating physician Oscar Irizarry who reviewed the assessment and plan. Chart, medications, labs, vital signs reviewed. Dictation was accomplished with the use of [employer] voice recognition software, which is prone to medical misidentifications and grammatical errors. This are unintentional and the practitioner does try to identify and correct these, but some could still be present. Please do not hesitate to contact practitioner for clarification. 03/03/2024 Nutritional counseling (ICD-10 - Z71.3) Patient is here for weight management follow-up. We focused on significance of healthy lifestyle changes. We talked about need to track steps with goal between 6000-10,000 steps daily, focus on portion control, read food labels, get adequate sleep between 7 to 8 hours, get adequate rest to the body, meditate, frequent nutritious meals including vegetables and healthy choices of lean meats, fish, and elimination of refined carbohydrates. We also talked about mindfulness and mindful eating. Particular focus was on adding adjunctive topiramate to aid weight loss. Total time spent with 30 minutes with greater than 50% spent on counseling and coordinating care. 11/30/2022: Weight 213.2 pounds, BMI 32.41 02/19/2023: Weight 209.7 pounds, BMI 31.88 03/23/2023: Weight 209.8 pounds, BMI 31.9 04/22/2023: Weight 201 pounds, BMI 30.56 08/10/2023: Weight 192 pounds, BMI 29.19 12/07/2023: Weight 181 pounds, BMI 27.5 to 01/03/2024: Weight 181 pounds, BMI 27.52. Seca scan unable to be completed today, equipment is malfunctioning. Patient demonstrates understanding. Has been on 12.5 mg of Zepbound for the past 3 months, reports no side effects, however states that appetite is less suppressed at this time. Has had cravings and has been feeling hungrier over the past several weeks. Walking for exercise. Will increase dose of Zepbound to 15 mg once weekly subcutaneous injection. Advised on proper use of medication and expected side effect profile including but not limited to nausea, constipation, acid reflux, and fatigue. She will follow-up in the office in approximately 4 weeks for weight management. 02/02/2024: Weight 180 pounds, BMI 27.37. Seca scan completed interpreted with the patient today. She has a slight increase in fat mass from 63-66 pounds. Maintaining good muscle mass. Small increase from 1.5-1.7 for visceral adipose tissue index. Has been on Zepbound 15 mg once weekly. Tolerating medication well. Reports good suppression of her appetite. Has introduced cycling into her exercise routine. Will continue current dose. Discussed proper use of the medication including rotating injection sites and expected side effect profile. She will follow-up the office in approximately 1 month for continued weight management. All patient questions answered at this time. 03/03/2024: Weight 180 pounds, BMI 27.37. Seca scan completed today and interpreted with the patient. Patient has been plateauing for the past several months with no significant change in weight. No change in fat mass since previous visit. Currently on Zepbound 15 mg once weekly. Reports no side effects at this time. Because she has been plateauing will initiate topiramate as adjunctive medication for further weight loss. Advised that the medication has a effect of appetite suppression. Advised to take the medication once daily and if she tolerates well after 1 week can increase dose to 2 tablets once daily totaling 50 mg. Discussed expected side effect profile including but not limited to abdominal pain, nausea, diarrhea, dizziness. She will follow-up in the office in approximately 4 weeks for continued weight management. All questions have been answered to patient's satisfaction. Patient verbalized understanding of diagnosis and treatments explained. Advised to call sooner prior to next visit it any questions/concerns arise. Case discussed with collaborating physician Oscar Irizarry who reviewed the assessment and plan. Chart, medications, labs, vital signs reviewed. Dictation was accomplished with the use of [employer] voice recognition software, which is prone to medical misidentifications and grammatical errors. This are unintentional and the practitioner does try to identify and correct these, but some could still be present. Please do not hesitate to contact practitioner for clarification. 02/02/2024 Nutritional counseling (ICD-10 - Z71.3) Patient is here for weight management follow-up. We focused on significance of healthy lifestyle changes. We talked about need to track steps with goal between 6000-10,000 steps daily, focus on portion control, read food labels, get adequate sleep between 7 to 8 hours, get adequate rest to the body, meditate, frequent nutritious meals including vegetables and healthy choices of lean meats, fish, and elimination of refined carbohydrates. We also talked about mindfulness and mindful eating. Particular focus was on improving protein consumption and incorporating some resistance training to maintain and build muscle mass.. Total time spent with 30 minutes with greater than 50% spent on counseling and coordinating care. 01/03/2024: Weight 181 pounds, BMI 27.52. Seca scan unable to be completed today, equipment is malfunctioning. Patient demonstrates understanding. Has been on 12.5 mg of Zepbound for the past 3 months, reports no side effects, however states that appetite is less suppressed at this time. Has had cravings and has been feeling hungrier over the past several weeks. Walking for exercise. Will increase dose of Zepbound to 15 mg once weekly subcutaneous injection. Advised on proper use of medication and expected side effect profile including but not limited to nausea, constipation, acid reflux, and fatigue. She will follow-up in the office in approximately 4 weeks for weight management. 02/02/2024: Weight 180 pounds, BMI 27.37. Seca scan completed interpreted with the patient today. She has a slight increase in fat mass from 63-66 pounds. Maintaining good muscle mass. Small increase from 1.5-1.7 for visceral adipose tissue index. Has been on Zepbound 15 mg once weekly. Tolerating medication well. Reports good suppression of her appetite. Has introduced cycling into her exercise routine. Will continue current dose. Discussed proper use of the medication including rotating injection sites and expected side effect profile. She will follow-up the office in approximately 1 month for continued weight management. All patient questions answered at this time. All questions have been answered to patient's satisfaction. Patient verbalized understanding of diagnosis and treatments explained. Advised to call sooner prior to next visit it any questions/concerns arise. Case discussed with collaborating physician Oscar Irizarry who reviewed the assessment and plan. Chart, medications, labs, vital signs reviewed. Dictation was accomplished with the use of [employer] voice recognition software, which is prone to medical misidentifications and grammatical errors. This are unintentional and the practitioner does try to identify and correct these, but some could still be present. Please do not hesitate to contact practitioner for clarification. 02/02/2024 Overweight (ICD-10 - E66.3) Patient is here for weight management follow-up. We focused on significance of healthy lifestyle changes. We talked about need to track steps with goal between 6000-10,000 steps daily, focus on portion control, read food labels, get adequate sleep between 7 to 8 hours, get adequate rest to the body, meditate, frequent nutritious meals including vegetables and healthy choices of lean meats, fish, and elimination of refined carbohydrates. We also talked about mindfulness and mindful eating. Particular focus was on improving protein consumption and incorporating some resistance training to maintain and build muscle mass.. Total time spent with 30 minutes with greater than 50% spent on counseling and coordinating care. 01/03/2024: Weight 181 pounds, BMI 27.52. Seca scan unable to be completed today, equipment is malfunctioning. Patient demonstrates understanding. Has been on 12.5 mg of Zepbound for the past 3 months, reports no side effects, however states that appetite is less suppressed at this time. Has had cravings and has been feeling hungrier over the past several weeks. Walking for exercise. Will increase dose of Zepbound to 15 mg once weekly subcutaneous injection. Advised on proper use of medication and expected side effect profile including but not limited to nausea, constipation, acid reflux, and fatigue. She will follow-up in the office in approximately 4 weeks for weight management. 02/02/2024: Weight 180 pounds, BMI 27.37. Seca scan completed interpreted with the patient today. She has a slight increase in fat mass from 63-66 pounds. Maintaining good muscle mass. Small increase from 1.5-1.7 for visceral adipose tissue index. Has been on Zepbound 15 mg once weekly. Tolerating medication well. Reports good suppression of her appetite. Has introduced cycling into her exercise routine. Will continue current dose. Discussed proper use of the medication including rotating injection sites and expected side effect profile. She will follow-up the office in approximately 1 month for continued weight management. All patient questions answered at this time. All questions have been answered to patient's satisfaction. Patient verbalized understanding of diagnosis and treatments explained. Advised to call sooner prior to next visit it any questions/concerns arise. Case discussed with collaborating physician Oscar Irizarry who reviewed the assessment and plan. Chart, medications, labs, vital signs reviewed. Dictation was accomplished with the use of [employer] voice recognition software, which is prone to medical misidentifications and grammatical errors. This are unintentional and the practitioner does try to identify and correct these, but some could still be present. Please do not hesitate to contact practitioner for clarification. 12/09/2023 BMI 29.0-29.9,adult (ICD-10 - Z68.29) Acute Concerns/Problem List: 12/09/2023 STD testing [employer] referall Thriving on dual incretin's She has left the obesity world and we have congratulated her Continue 12.5 milligrams zbound Total time spent today was 30 minutes of which greater than 50% was spent on coordinating and counseling Patient has been found to be overweight with a BMI of (29). Patient has overweight class per BMI standards We are a board certified obesity and weight management practice Patient has trialed behavioral modification, dietary restrictions and exercise for a minimum of 6 months The most recent [place] [employer]ocrinologists and [place] [employer] guidelines recommend patients who have overweight BMI or obesity BMI, who also have metabolic syndrome, prediabetes, or at risk of developing type 2 diabetes should aim for a weight loss goal of at least 10% of the baseline body weight Patient counseled regarding effects of GLP/GIP-1 agonists, and other FDA approved wgt loss meds with regards to a multifactorial approach of weight loss as mentioned above and not solely appetite suppression. We have discussed the mechanism of GLP-1's/GIP, dual incretins, appetitite suppressants I think this would be fantastic option for her given her metabolic workup and body composition We have discussed the risks and benefits and side effects including/and not limited to Sarcopenia, intestinal obstruction, constipation, nausea, lethargy, headache Discussed importance of protein consumption for muscle maintenance as well as strength and resistance training ,probiotics, B12 complex biotin , iron and other nutrients, To help avoid telogen effluvium We have discussed the lifelong requirement of nutritional supplementation And adherence to an exercise regimen as well as importance of follow-up The patient understands and agrees There is no history of medullary thyroid cancer or multiple endocrine neoplasia There is also no history of cardiovascular disease, hypertension, palpitations, or arrhythmias In the setting of potential stimulant/amphetamine use such as phentermine We have also discussed risks and benefits, and the use of compounded medications to help offset the national shortages as well as financial implications vs trade name drugs Patient was reassured and welcomed to the practice. We discussed that we stress a hollistic medical approach with emphasis on lifestyle modification. Patient was informed that a healthy lifestyle with exercise and good eating habits can help reduce his risk of medical complications. He is explained that obesity increases his risk of diabetes, cardiovascular disease, or organ damage. We spent a lot of time discussing the relationship between food, exercise, sleep, mental health and obesity. Patient was counseled on the importance EATING local, organic food when possible. Patient was educated on clean 15 and dirty dozen. I provided information about reading books called The Food Rules by Julian Álvarez and Eat Fat Get Lean by Dr Madhu Ramos. Self education is important in the journey for weight management. Patient was offered diagnostic testing. We want to measure visceral adiposity, advanced body composition, adverse lipids, fatty acid balance, risk for heart disease and atherosclerosis, markers of inflammation and genetic susceptibility. Patient was counseled on weight management and was advised to lose weight using A. Meal Replacement Products We discussed the lifelong requirement of nutritional supplementation and adherence to an exercise regimen as well as importance of dietary follow-up Patient was educated on the replacement products called optifast. This is a good way of taking fixed amount of calories. It has been shown in studies to be ineffective weight management tool. We also recommend maintaining adequate protein intake and muscle composition, 1.5mg/kg This however has to be coupled with lifestyle intervention as well as laboratory data and EKG monitoring. It is impossible to know how a person will tolerate complete meal replacement. The side effects of meal replacement and weight loss could include syncopal attacks, dizziness, gallstones, potential cholecystectomy, possible heart attack and even . The benefits of meal replacement would be potential weight loss but no guarantees can be made. Meal replacement products are not covered by insurance. Once the patient has bought these products we cannot return them B. Lifestyle management which includes several strategies as below 1. Eat a low carbohydrate good fat good protein diet. Eliminate refined carbohydrates from the diet. Continue blood sugar and sugared beverages. Eat local organic when possible. Cook your own meals. Read food labels. None about healthy snacks. Portion control and food with low glycemic index 2. Exercise regularly. Try to get at least 6000 steps a day. Use a predominant to track activity level. Consider using apps like [employer], myfitnesspal, lose it, stick as needed for self-monitoring and weight management. Consider group exercises. Consider hiring a tangible personal property appraiser. Regular exercise is persaud to sustainable health and prevents as a buffer against weight regain 3. Sleep is most important for healing. Tried to sleep at least 8 hours a night. A good quality sleep needs a sleep ritual with ideal room temperature of around 68. It might help to take a shower and have no electronics in the room and sleep in a very dark room without artificial light. Start her sleep routine and get up early in the morning and go to bed on time 4. Make a social connection. Surround yourself with positive people with positive energy. Connect with friends and family. 5. Get into the habit of meditating and mindfulness while doing everything. 6. Go outside and connect with nature. C. Prescription medications Patient was educated on the use of prescription medications for medical weight loss. This is a growing list and includes phentermine, Topamax,Qsymia, contrave, belviq and saxenda. All prescription medications could have side effects including but not limited to kidney stones, seizure disorder cardiac arrhythmias heart attack pancreatitis etc. etc.. Patient was encouraged to read the prescription insert and have coaching with their pharmacist and make an informed decision about taking medication and know that these medications are being prescribed with good intentions and we do not know how a patient would react to her medication. Sudden medications are FDA approved for weight loss and there is also off label use depending on patient's inability to afford medications in an attempt to lose weight D. Behavioral counseling was done to establish a relationship between food and an mood. Patient was provided information about local counseling and psychiatry and Dr Ryan at [facility]. We would like to cover regular topics and build on low glycemic eating exercise mindful eating, using yoga and meditation along with deep breathing and connecting with friends and family. E. MASS PAT reviewed, Patient's current medications were reviewed and opinion was given on medication that can cause weight gain and can be substituted F. Patient was assessed for risk with obesity including and not limiting to atherosclerosis heart disease stroke kidney disease, restrictive lung disease, irritable bowel syndrome and overall mortality. Risk of developing prediabetes diabetes and metabolic syndrome was discussed G. Therapeutic plan: We have decided to make therapeutic plan which would include choosing wisely on calories restricting portion getting active, tracking weight, getting good quality sleep and working on time management H. Patient will follow up in (4) weeks for weight management Of note, some information is being carried forward from prior records for informational purposes only and is being cited so that efficiency, safety and quality of the patient's care is not compromised This note was prepared using voice recognition software and direct typing Please excuse inadvertent hrbp or typing errors, or uncorrected word substitutions Although every attempt has been made by the provider to proofread this document, occasional misspellings and typographical errors may still be present Due to the previous pandemic, and the use of personal protective equipment (PPE) This may decrease voice recognition accuracy Inadvertent hrbp errors may occur 01/03/2024 Nutritional counseling (ICD-10 - Z71.3) Patient is here for weight management follow-up. We focused on significance of healthy lifestyle changes. We talked about need to track steps with goal between 6000-10,000 steps daily, focus on portion control, read food labels, get adequate sleep between 7 to 8 hours, get adequate rest to the body, meditate, frequent nutritious meals including vegetables and healthy choices of lean meats, fish, and elimination of refined carbohydrates. We also talked about mindfulness and mindful eating. Particular focus was on improving protein consumption and incorporating some resistance training to maintain and build muscle mass.. Total time spent with 30 minutes with greater than 50% spent on counseling and coordinating care. 01/03/2024: Weight 181 pounds, BMI 27.52. Seca scan unable to be completed today, equipment is malfunctioning. Patient demonstrates understanding. Has been on 12.5 mg of Zepbound for the past 3 months, reports no side effects, however states that appetite is less suppressed at this time. Has had cravings and has been feeling hungrier over the past several weeks. Walking for exercise. Will increase dose of Zepbound to 15 mg once weekly subcutaneous injection. Advised on proper use of medication and expected side effect profile including but not limited to nausea, constipation, acid reflux, and fatigue. She will follow-up in the office in approximately 4 weeks for weight management. All questions have been answered to patient's satisfaction. Patient verbalized understanding of diagnosis and treatments explained. Advised to call sooner prior to next visit it any questions/concerns arise. Case discussed with collaborating physician Oscar Irizarry who reviewed the assessment and plan. Chart, medications, labs, vital signs reviewed. Dictation was accomplished with the use of [employer] voice recognition software, which is prone to medical misidentifications and grammatical errors. This are unintentional and the practitioner does try to identify and correct these, but some could still be present. Please do not hesitate to contact practitioner for clarification. 12/07/2023 Overweight (BMI 25.0-29.9) (ICD-10 - E66.3) #Weight Management 12/07/2023 Thriving on dual incretin's cont 12.5mg discussed maintenance dosing as approaching target goal weight Total time spent today was 30 minutes of which greater than 50% was spent on coordinating and counseling Patient has been found to be overweight with a BMI of (27). Patient has overweight class per BMI standards We are a board certified obesity and weight management practice Patient has trialed behavioral modification, dietary restrictions and exercise for a minimum of 6 months The most recent [place] [employer]ocrinologists and [place] [employer] guidelines recommend patients who have overweight BMI or obesity BMI, who also have metabolic syndrome, prediabetes, or at risk of developing type 2 diabetes should aim for a weight loss goal of at least 10% of the baseline body weight Patient counseled regarding effects of GLP/GIP-1 agonists, and other FDA approved wgt loss meds with regards to a multifactorial approach of weight loss as mentioned above and not solely appetite suppression. We have discussed the mechanism of GLP-1's/GIP, dual incretins, appetitite suppressants I think this would be fantastic option for her given her metabolic workup and body composition We have discussed the risks and benefits and side effects including/and not limited to Sarcopenia, intestinal obstruction, constipation, nausea, lethargy, headache Discussed importance of protein consumption for muscle maintenance as well as strength and resistance training ,probiotics, B12 complex biotin , iron and other nutrients, To help avoid telogen effluvium We have discussed the lifelong requirement of nutritional supplementation And adherence to an exercise regimen as well as importance of follow-up The patient understands and agrees There is no history of medullary thyroid cancer or multiple endocrine neoplasia There is also no history of cardiovascular disease, hypertension, palpitations, or arrhythmias In the setting of potential stimulant/amphetamine use such as phentermine We have also discussed risks and benefits, and the use of compounded medications to help offset the national shortages as well as financial implications vs trade name drugs Patient was reassured and welcomed to the practice. We discussed that we stress a hollistic medical approach with emphasis on lifestyle modification. Patient was informed that a healthy lifestyle with exercise and good eating habits can help reduce his risk of medical complications. He is explained that obesity increases his risk of diabetes, cardiovascular disease, or organ damage. We spent a lot of time discussing the relationship between food, exercise, sleep, mental health and obesity. Patient was counseled on the importance EATING local, organic food when possible. Patient was educated on clean 15 and dirty dozen. I provided information about reading books called The Food Rules by Julian Álvarez and Eat Fat Get Lean by Dr Madhu Ramos. Self education is important in the journey for weight management. Patient was offered diagnostic testing. We want to measure visceral adiposity, advanced body composition, adverse lipids, fatty acid balance, risk for heart disease and atherosclerosis, markers of inflammation and genetic susceptibility. Patient was counseled on weight management and was advised to lose weight using A. Meal Replacement Products We discussed the lifelong requirement of nutritional supplementation and adherence to an exercise regimen as well as importance of dietary follow-up Patient was educated on the replacement products called optifast. This is a good way of taking fixed amount of calories. It has been shown in studies to be ineffective weight management tool. We also recommend maintaining adequate protein intake and muscle composition, 1.5mg/kg This however has to be coupled with lifestyle intervention as well as laboratory data and EKG monitoring. It is impossible to know how a person will tolerate complete meal replacement. The side effects of meal replacement and weight loss could include syncopal attacks, dizziness, gallstones, potential cholecystectomy, possible heart attack and even . The benefits of meal replacement would be potential weight loss but no guarantees can be made. Meal replacement products are not covered by insurance. Once the patient has bought these products we cannot return them B. Lifestyle management which includes several strategies as below 1. Eat a low carbohydrate good fat good protein diet. Eliminate refined carbohydrates from the diet. Continue blood sugar and sugared beverages. Eat local organic when possible. Cook your own meals. Read food labels. None about healthy snacks. Portion control and food with low glycemic index 2. Exercise regularly. Try to get at least 6000 steps a day. Use a predominant to track activity level. Consider using apps like [employer], myfitnesspal, lose it, stick as needed for self-monitoring and weight management. Consider group exercises. Consider hiring a tangible personal property appraiser. Regular exercise is persaud to sustainable health and prevents as a buffer against weight regain 3. Sleep is most important for healing. Tried to sleep at least 8 hours a night. A good quality sleep needs a sleep ritual with ideal room temperature of around 68. It might help to take a shower and have no electronics in the room and sleep in a very dark room without artificial light. Start her sleep routine and get up early in the morning and go to bed on time 4. Make a social connection. Surround yourself with positive people with positive energy. Connect with friends and family. 5. Get into the habit of meditating and mindfulness while doing everything. 6. Go outside and connect with nature. C. Prescription medications Patient was educated on the use of prescription medications for medical weight loss. This is a growing list and includes phentermine, Topamax,Qsymia, contrave, belviq and saxenda. All prescription medications could have side effects including but not limited to kidney stones, seizure disorder cardiac arrhythmias heart attack pancreatitis etc. etc.. Patient was encouraged to read the prescription insert and have coaching with their pharmacist and make an informed decision about taking medication and know that these medications are being prescribed with good intentions and we do not know how a patient would react to her medication. Sudden medications are FDA approved for weight loss and there is also off label use depending on patient's inability to afford medications in an attempt to lose weight D. Behavioral counseling was done to establish a relationship between food and an mood. Patient was provided information about local counseling and psychiatry and Dr Ryan at [facility]. We would like to cover regular topics and build on low glycemic eating exercise mindful eating, using yoga and meditation along with deep breathing and connecting with friends and family. E. MASS PAT reviewed, Patient's current medications were reviewed and opinion was given on medication that can cause weight gain and can be substituted F. Patient was assessed for risk with obesity including and not limiting to atherosclerosis heart disease stroke kidney disease, restrictive lung disease, irritable bowel syndrome and overall mortality. Risk of developing prediabetes diabetes and metabolic syndrome was discussed G. Therapeutic plan: We have decided to make therapeutic plan which would include choosing wisely on calories restricting portion getting active, tracking weight, getting good quality sleep and working on time management H. Patient will follow up in (4) weeks for weight management Of note, some information is being carried forward from prior records for informational purposes only and is being cited so that efficiency, safety and quality of the patient's care is not compromised This note was prepared using voice recognition software and direct typing Please excuse inadvertent hrbp or typing errors, or uncorrected word substitutions Although every attempt has been made by the provider to proofread this document, occasional misspellings and typographical errors may still be present Due to the previous pandemic, and the use of personal protective equipment (PPE) This may decrease voice recognition accuracy Inadvertent hrbp errors may occur 12/07/2023 Dietary counseling and surveillance (ICD-10 - Z71.3) #Weight Management 12/07/2023 Thriving on dual incretin's cont 12.5mg discussed maintenance dosing as approaching target goal weight Total time spent today was 30 minutes of which greater than 50% was spent on coordinating and counseling Patient has been found to be overweight with a BMI of (27). Patient has overweight class per BMI standards We are a board certified obesity and weight management practice Patient has trialed behavioral modification, dietary restrictions and exercise for a minimum of 6 months The most recent [place] [employer]ocrinologists and [place] [employer] guidelines recommend patients who have overweight BMI or obesity BMI, who also have metabolic syndrome, prediabetes, or at risk of developing type 2 diabetes should aim for a weight loss goal of at least 10% of the baseline body weight Patient counseled regarding effects of GLP/GIP-1 agonists, and other FDA approved wgt loss meds with regards to a multifactorial approach of weight loss as mentioned above and not solely appetite suppression. We have discussed the mechanism of GLP-1's/GIP, dual incretins, appetitite suppressants I think this would be fantastic option for her given her metabolic workup and body composition We have discussed the risks and benefits and side effects including/and not limited to Sarcopenia, intestinal obstruction, constipation, nausea, lethargy, headache Discussed importance of protein consumption for muscle maintenance as well as strength and resistance training ,probiotics, B12 complex biotin , iron and other nutrients, To help avoid telogen effluvium We have discussed the lifelong requirement of nutritional supplementation And adherence to an exercise regimen as well as importance of follow-up The patient understands and agrees There is no history of medullary thyroid cancer or multiple endocrine neoplasia There is also no history of cardiovascular disease, hypertension, palpitations, or arrhythmias In the setting of potential stimulant/amphetamine use such as phentermine We have also discussed risks and benefits, and the use of compounded medications to help offset the national shortages as well as financial implications vs trade name drugs Patient was reassured and welcomed to the practice. We discussed that we stress a hollistic medical approach with emphasis on lifestyle modification. Patient was informed that a healthy lifestyle with exercise and good eating habits can help reduce his risk of medical complications. He is explained that obesity increases his risk of diabetes, cardiovascular disease, or organ damage. We spent a lot of time discussing the relationship between food, exercise, sleep, mental health and obesity. Patient was counseled on the importance EATING local, organic food when possible. Patient was educated on clean 15 and dirty dozen. I provided information about reading books called The Food Rules by Julian Álvarez and Eat Fat Get Lean by Dr Madhu Ramos. Self education is important in the journey for weight management. Patient was offered diagnostic testing. We want to measure visceral adiposity, advanced body composition, adverse lipids, fatty acid balance, risk for heart disease and atherosclerosis, markers of inflammation and genetic susceptibility. Patient was counseled on weight management and was advised to lose weight using A. Meal Replacement Products We discussed the lifelong requirement of nutritional supplementation and adherence to an exercise regimen as well as importance of dietary follow-up Patient was educated on the replacement products called optifast. This is a good way of taking fixed amount of calories. It has been shown in studies to be ineffective weight management tool. We also recommend maintaining adequate protein intake and muscle composition, 1.5mg/kg This however has to be coupled with lifestyle intervention as well as laboratory data and EKG monitoring. It is impossible to know how a person will tolerate complete meal replacement. The side effects of meal replacement and weight loss could include syncopal attacks, dizziness, gallstones, potential cholecystectomy, possible heart attack and even . The benefits of meal replacement would be potential weight loss but no guarantees can be made. Meal replacement products are not covered by insurance. Once the patient has bought these products we cannot return them B. Lifestyle management which includes several strategies as below 1. Eat a low carbohydrate good fat good protein diet. Eliminate refined carbohydrates from the diet. Continue blood sugar and sugared beverages. Eat local organic when possible. Cook your own meals. Read food labels. None about healthy snacks. Portion control and food with low glycemic index 2. Exercise regularly. Try to get at least 6000 steps a day. Use a predominant to track activity level. Consider using apps like Profyle, INTTRApal, lose it, stick as needed for self-monitoring and weight management. Consider group exercises. Consider hiring a tangible personal property appraiser. Regular exercise is persaud to sustainable health and prevents as a buffer against weight regain 3. Sleep is most important for healing. Tried to sleep at least 8 hours a night. A good quality sleep needs a sleep ritual with ideal room temperature of around 68. It might help to take a shower and have no electronics in the room and sleep in a very dark room without artificial light. Start her sleep routine and get up early in the morning and go to bed on time 4. Make a social connection. Surround yourself with positive people with positive energy. Connect with friends and family. 5. Get into the habit of meditating and mindfulness while doing everything. 6. Go outside and connect with nature. C. Prescription medications Patient was educated on the use of prescription medications for medical weight loss. This is a growing list and includes phentermine, Topamax,Qsymia, contrave, belviq and saxenda. All prescription medications could have side effects including but not limited to kidney stones, seizure disorder cardiac arrhythmias heart attack pancreatitis etc. etc.. Patient was encouraged to read the prescription insert and have coaching with their pharmacist and make an informed decision about taking medication and know that these medications are being prescribed with good intentions and we do not know how a patient would react to her medication. Sudden medications are FDA approved for weight loss and there is also off label use depending on patient's inability to afford medications in an attempt to lose weight D. Behavioral counseling was done to establish a relationship between food and an mood. Patient was provided information about local counseling and psychiatry and Dr Ryan at [facility]. We would like to cover regular topics and build on low glycemic eating exercise mindful eating, using yoga and meditation along with deep breathing and connecting with friends and family. E. MASS PAT reviewed, Patient's current medications were reviewed and opinion was given on medication that can cause weight gain and can be substituted F. Patient was assessed for risk with obesity including and not limiting to atherosclerosis heart disease stroke kidney disease, restrictive lung disease, irritable bowel syndrome and overall mortality. Risk of developing prediabetes diabetes and metabolic syndrome was discussed G. Therapeutic plan: We have decided to make therapeutic plan which would include choosing wisely on calories restricting portion getting active, tracking weight, getting good quality sleep and working on time management H. Patient will follow up in (4) weeks for weight management Of note, some information is being carried forward from prior records for informational purposes only and is being cited so that efficiency, safety and quality of the patient's care is not compromised This note was prepared using voice recognition software and direct typing Please excuse inadvertent hrbp or typing errors, or uncorrected word substitutions Although every attempt has been made by the provider to proofread this document, occasional misspellings and typographical errors may still be present Due to the previous pandemic, and the use of personal protective equipment (PPE) This may decrease voice recognition accuracy Inadvertent hrbp errors may occur 10/07/2023 Overweight (BMI 25.0-29.9) (ICD-10 - E66.3) #Weight Management 10/07/2023 Thriving on dual incretin's She has left the obesity world and we have congratulated her Continue 10 milligrams with potential of increasing in the next coming weeks to 12.5 Total time spent today was 30 minutes of which greater than 50% was spent on coordinating and counseling Patient has been found to be overweight with a BMI of (29). Patient has overweight class per BMI standards We are a board certified obesity and weight management practice Patient has trialed behavioral modification, dietary restrictions and exercise for a minimum of 6 months The most recent [place] [employer]in[employer] and [place] [employer] guidelines recommend patients who have overweight BMI or obesity BMI, who also have metabolic syndrome, prediabetes, or at risk of developing type 2 diabetes should aim for a weight loss goal of at least 10% of the baseline body weight Patient counseled regarding effects of GLP/GIP-1 agonists, and other FDA approved wgt loss meds with regards to a multifactorial approach of weight loss as mentioned above and not solely appetite suppression. We have discussed the mechanism of GLP-1's/GIP, dual incretins, appetitite suppressants I think this would be fantastic option for her given her metabolic workup and body composition We have discussed the risks and benefits and side effects including/and not limited to Sarcopenia, intestinal obstruction, constipation, nausea, lethargy, headache Discussed importance of protein consumption for muscle maintenance as well as strength and resistance training ,probiotics, B12 complex biotin , iron and other nutrients, To help avoid telogen effluvium We have discussed the lifelong requirement of nutritional supplementation And adherence to an exercise regimen as well as importance of follow-up The patient understands and agrees There is no history of medullary thyroid cancer or multiple endocrine neoplasia There is also no history of cardiovascular disease, hypertension, palpitations, or arrhythmias In the setting of potential stimulant/amphetamine use such as phentermine We have also discussed risks and benefits, and the use of compounded medications to help offset the national shortages as well as financial implications vs trade name drugs Patient was reassured and welcomed to the practice. We discussed that we stress a hollistic medical approach with emphasis on lifestyle modification. Patient was informed that a healthy lifestyle with exercise and good eating habits can help reduce his risk of medical complications. He is explained that obesity increases his risk of diabetes, cardiovascular disease, or organ damage. We spent a lot of time discussing the relationship between food, exercise, sleep, mental health and obesity. Patient was counseled on the importance EATING local, organic food when possible. Patient was educated on clean 15 and dirty dozen. I provided information about reading books called The Food Rules by Julian Álvarez and Eat Fat Get Lean by Dr Madhu Ramos. Self education is important in the journey for weight management. Patient was offered diagnostic testing. We want to measure visceral adiposity, advanced body composition, adverse lipids, fatty acid balance, risk for heart disease and atherosclerosis, markers of inflammation and genetic susceptibility. Patient was counseled on weight management and was advised to lose weight using A. Meal Replacement Products We discussed the lifelong requirement of nutritional supplementation and adherence to an exercise regimen as well as importance of dietary follow-up Patient was educated on the replacement products called optifast. This is a good way of taking fixed amount of calories. It has been shown in studies to be ineffective weight management tool. We also recommend maintaining adequate protein intake and muscle composition, 1.5mg/kg This however has to be coupled with lifestyle intervention as well as laboratory data and EKG monitoring. It is impossible to know how a person will tolerate complete meal replacement. The side effects of meal replacement and weight loss could include syncopal attacks, dizziness, gallstones, potential cholecystectomy, possible heart attack and even . The benefits of meal replacement would be potential weight loss but no guarantees can be made. Meal replacement products are not covered by insurance. Once the patient has bought these products we cannot return them B. Lifestyle management which includes several strategies as below 1. Eat a low carbohydrate good fat good protein diet. Eliminate refined carbohydrates from the diet. Continue blood sugar and sugared beverages. Eat local organic when possible. Cook your own meals. Read food labels. None about healthy snacks. Portion control and food with low glycemic index 2. Exercise regularly. Try to get at least 6000 steps a day. Use a predominant to track activity level. Consider using apps like Profyle, myfitnesspal, lose it, stick as needed for self-monitoring and weight management. Consider group exercises. Consider hiring a tangible personal property appraiser. Regular exercise is persaud to sustainable health and prevents as a buffer against weight regain 3. Sleep is most important for healing. Tried to sleep at least 8 hours a night. A good quality sleep needs a sleep ritual with ideal room temperature of around 68. It might help to take a shower and have no electronics in the room and sleep in a very dark room without artificial light. Start her sleep routine and get up early in the morning and go to bed on time 4. Make a social connection. Surround yourself with positive people with positive energy. Connect with friends and family. 5. Get into the habit of meditating and mindfulness while doing everything. 6. Go outside and connect with nature. C. Prescription medications Patient was educated on the use of prescription medications for medical weight loss. This is a growing list and includes phentermine, Topamax,Qsymia, contrave, belviq and saxenda. All prescription medications could have side effects including but not limited to kidney stones, seizure disorder cardiac arrhythmias heart attack pancreatitis etc. etc.. Patient was encouraged to read the prescription insert and have coaching with their pharmacist and make an informed decision about taking medication and know that these medications are being prescribed with good intentions and we do not know how a patient would react to her medication. Sudden medications are FDA approved for weight loss and there is also off label use depending on patient's inability to afford medications in an attempt to lose weight D. Behavioral counseling was done to establish a relationship between food and an mood. Patient was provided information about local counseling and psychiatry and Dr Ryan at [facility]. We would like to cover regular topics and build on low glycemic eating exercise mindful eating, using yoga and meditation along with deep breathing and connecting with friends and family. E. MASS PAT reviewed, Patient's current medications were reviewed and opinion was given on medication that can cause weight gain and can be substituted F. Patient was assessed for risk with obesity including and not limiting to atherosclerosis heart disease stroke kidney disease, restrictive lung disease, irritable bowel syndrome and overall mortality. Risk of developing prediabetes diabetes and metabolic syndrome was discussed G. Therapeutic plan: We have decided to make therapeutic plan which would include choosing wisely on calories restricting portion getting active, tracking weight, getting good quality sleep and working on time management H. Patient will follow up in (4) weeks for weight management Of note, some information is being carried forward from prior records for informational purposes only and is being cited so that efficiency, safety and quality of the patient's care is not compromised This note was prepared using voice recognition software and direct typing Please excuse inadvertent hrbp or typing errors, or uncorrected word substitutions Although every attempt has been made by the provider to proofread this document, occasional misspellings and typographical errors may still be present Due to the previous pandemic, and the use of personal protective equipment (PPE) This may decrease voice recognition accuracy Inadvertent hrbp errors may occur 08/10/2023 Encounter for screening for diabetes mellitus (ICD-10 - Z13.1) 08/10/2023 Dietary counseling and surveillance (ICD-10 - Z71.3) #Weight Management 08/10/2023 Thriving on dual incretin's She has left the obesity world and we have congratulated her Continue 10 milligrams with potential of increasing in the next coming weeks to 12.5 Total time spent today was 30 minutes of which greater than 50% was spent on coordinating and counseling Patient has been found to be overweight with a BMI of (29). Patient has overweight class per BMI standards We are a board certified obesity and weight management practice Patient has trialed behavioral modification, dietary restrictions and exercise for a minimum of 6 months The most recent [place] [employer]in[employer] and [place] [employer] guidelines recommend patients who have overweight BMI or obesity BMI, who also have metabolic syndrome, prediabetes, or at risk of developing type 2 diabetes should aim for a weight loss goal of at least 10% of the baseline body weight Patient counseled regarding effects of GLP/GIP-1 agonists, and other FDA approved wgt loss meds with regards to a multifactorial approach of weight loss as mentioned above and not solely appetite suppression. We have discussed the mechanism of GLP-1's/GIP, dual incretins, appetitite suppressants I think this would be fantastic option for her given her metabolic workup and body composition We have discussed the risks and benefits and side effects including/and not limited to Sarcopenia, intestinal obstruction, constipation, nausea, lethargy, headache Discussed importance of protein consumption for muscle maintenance as well as strength and resistance training ,probiotics, B12 complex biotin , iron and other nutrients, To help avoid telogen effluvium We have discussed the lifelong requirement of nutritional supplementation And adherence to an exercise regimen as well as importance of follow-up The patient understands and agrees There is no history of medullary thyroid cancer or multiple endocrine neoplasia There is also no history of cardiovascular disease, hypertension, palpitations, or arrhythmias In the setting of potential stimulant/amphetamine use such as phentermine We have also discussed risks and benefits, and the use of compounded medications to help offset the national shortages as well as financial implications vs trade name drugs Patient was reassured and welcomed to the practice. We discussed that we stress a hollistic medical approach with emphasis on lifestyle modification. Patient was informed that a healthy lifestyle with exercise and good eating habits can help reduce his risk of medical complications. He is explained that obesity increases his risk of diabetes, cardiovascular disease, or organ damage. We spent a lot of time discussing the relationship between food, exercise, sleep, mental health and obesity. Patient was counseled on the importance EATING local, organic food when possible. Patient was educated on clean 15 and dirty dozen. I provided information about reading books called The Food Rules by Julian Álvarez and Eat Fat Get Lean by Dr Madhu Ramos. Self education is important in the journey for weight management. Patient was offered diagnostic testing. We want to measure visceral adiposity, advanced body composition, adverse lipids, fatty acid balance, risk for heart disease and atherosclerosis, markers of inflammation and genetic susceptibility. Patient was counseled on weight management and was advised to lose weight using A. Meal Replacement Products We discussed the lifelong requirement of nutritional supplementation and adherence to an exercise regimen as well as importance of dietary follow-up Patient was educated on the replacement products called optifast. This is a good way of taking fixed amount of calories. It has been shown in studies to be ineffective weight management tool. We also recommend maintaining adequate protein intake and muscle composition, 1.5mg/kg This however has to be coupled with lifestyle intervention as well as laboratory data and EKG monitoring. It is impossible to know how a person will tolerate complete meal replacement. The side effects of meal replacement and weight loss could include syncopal attacks, dizziness, gallstones, potential cholecystectomy, possible heart attack and even . The benefits of meal replacement would be potential weight loss but no guarantees can be made. Meal replacement products are not covered by insurance. Once the patient has bought these products we cannot return them B. Lifestyle management which includes several strategies as below 1. Eat a low carbohydrate good fat good protein diet. Eliminate refined carbohydrates from the diet. Continue blood sugar and sugared beverages. Eat local organic when possible. Cook your own meals. Read food labels. None about healthy snacks. Portion control and food with low glycemic index 2. Exercise regularly. Try to get at least 6000 steps a day. Use a predominant to track activity level. Consider using apps like Profyle, INTTRApal, lose it, stick as needed for self-monitoring and weight management. Consider group exercises. Consider hiring a tangible personal property appraiser. Regular exercise is persaud to sustainable health and prevents as a buffer against weight regain 3. Sleep is most important for healing. Tried to sleep at least 8 hours a night. A good quality sleep needs a sleep ritual with ideal room temperature of around 68. It might help to take a shower and have no electronics in the room and sleep in a very dark room without artificial light. Start her sleep routine and get up early in the morning and go to bed on time 4. Make a social connection. Surround yourself with positive people with positive energy. Connect with friends and family. 5. Get into the habit of meditating and mindfulness while doing everything. 6. Go outside and connect with nature. C. Prescription medications Patient was educated on the use of prescription medications for medical weight loss. This is a growing list and includes phentermine, Topamax,Qsymia, contrave, belviq and saxenda. All prescription medications could have side effects including but not limited to kidney stones, seizure disorder cardiac arrhythmias heart attack pancreatitis etc. etc.. Patient was encouraged to read the prescription insert and have coaching with their pharmacist and make an informed decision about taking medication and know that these medications are being prescribed with good intentions and we do not know how a patient would react to her medication. Sudden medications are FDA approved for weight loss and there is also off label use depending on patient's inability to afford medications in an attempt to lose weight D. Behavioral counseling was done to establish a relationship between food and an mood. Patient was provided information about local counseling and psychiatry and Dr Ryan at [facility]. We would like to cover regular topics and build on low glycemic eating exercise mindful eating, using yoga and meditation along with deep breathing and connecting with friends and family. E. MASS PAT reviewed, Patient's current medications were reviewed and opinion was given on medication that can cause weight gain and can be substituted F. Patient was assessed for risk with obesity including and not limiting to atherosclerosis heart disease stroke kidney disease, restrictive lung disease, irritable bowel syndrome and overall mortality. Risk of developing prediabetes diabetes and metabolic syndrome was discussed G. Therapeutic plan: We have decided to make therapeutic plan which would include choosing wisely on calories restricting portion getting active, tracking weight, getting good quality sleep and working on time management H. Patient will follow up in (4) weeks for weight management Of note, some information is being carried forward from prior records for informational purposes only and is being cited so that efficiency, safety and quality of the patient's care is not compromised This note was prepared using voice recognition software and direct typing Please excuse inadvertent hrbp or typing errors, or uncorrected word substitutions Although every attempt has been made by the provider to proofread this document, occasional misspellings and typographical errors may still be present Due to the previous pandemic, and the use of personal protective equipment (PPE) This may decrease voice recognition accuracy Inadvertent hrbp errors may occur 08/10/2023 Encounter for screening for lipoid disorders (ICD-10 - Z13.220) 10/07/2023 Dietary counseling and surveillance (ICD-10 - Z71.3) #Weight Management 10/07/2023 Thriving on dual incretin's She has left the obesity world and we have congratulated her Continue 10 milligrams with potential of increasing in the next coming weeks to 12.5 Total time spent today was 30 minutes of which greater than 50% was spent on coordinating and counseling Patient has been found to be overweight with a BMI of (29). Patient has overweight class per BMI standards We are a board certified obesity and weight management practice Patient has trialed behavioral modification, dietary restrictions and exercise for a minimum of 6 months The most recent [place] [employer]in[employer] and [place] [employer] guidelines recommend patients who have overweight BMI or obesity BMI, who also have metabolic syndrome, prediabetes, or at risk of developing type 2 diabetes should aim for a weight loss goal of at least 10% of the baseline body weight Patient counseled regarding effects of GLP/GIP-1 agonists, and other FDA approved wgt loss meds with regards to a multifactorial approach of weight loss as mentioned above and not solely appetite suppression. We have discussed the mechanism of GLP-1's/GIP, dual incretins, appetitite suppressants I think this would be fantastic option for her given her metabolic workup and body composition We have discussed the risks and benefits and side effects including/and not limited to Sarcopenia, intestinal obstruction, constipation, nausea, lethargy, headache Discussed importance of protein consumption for muscle maintenance as well as strength and resistance training ,probiotics, B12 complex biotin , iron and other nutrients, To help avoid telogen effluvium We have discussed the lifelong requirement of nutritional supplementation And adherence to an exercise regimen as well as importance of follow-up The patient understands and agrees There is no history of medullary thyroid cancer or multiple endocrine neoplasia There is also no history of cardiovascular disease, hypertension, palpitations, or arrhythmias In the setting of potential stimulant/amphetamine use such as phentermine We have also discussed risks and benefits, and the use of compounded medications to help offset the national shortages as well as financial implications vs trade name drugs Patient was reassured and welcomed to the practice. We discussed that we stress a hollistic medical approach with emphasis on lifestyle modification. Patient was informed that a healthy lifestyle with exercise and good eating habits can help reduce his risk of medical complications. He is explained that obesity increases his risk of diabetes, cardiovascular disease, or organ damage. We spent a lot of time discussing the relationship between food, exercise, sleep, mental health and obesity. Patient was counseled on the importance EATING local, organic food when possible. Patient was educated on clean 15 and dirty dozen. I provided information about reading books called The Food Rules by Julian Álvarez and Eat Fat Get Lean by Dr Madhu Ramos. Self education is important in the journey for weight management. Patient was offered diagnostic testing. We want to measure visceral adiposity, advanced body composition, adverse lipids, fatty acid balance, risk for heart disease and atherosclerosis, markers of inflammation and genetic susceptibility. Patient was counseled on weight management and was advised to lose weight using A. Meal Replacement Products We discussed the lifelong requirement of nutritional supplementation and adherence to an exercise regimen as well as importance of dietary follow-up Patient was educated on the replacement products called optifast. This is a good way of taking fixed amount of calories. It has been shown in studies to be ineffective weight management tool. We also recommend maintaining adequate protein intake and muscle composition, 1.5mg/kg This however has to be coupled with lifestyle intervention as well as laboratory data and EKG monitoring. It is impossible to know how a person will tolerate complete meal replacement. The side effects of meal replacement and weight loss could include syncopal attacks, dizziness, gallstones, potential cholecystectomy, possible heart attack and even . The benefits of meal replacement would be potential weight loss but no guarantees can be made. Meal replacement products are not covered by insurance. Once the patient has bought these products we cannot return them B. Lifestyle management which includes several strategies as below 1. Eat a low carbohydrate good fat good protein diet. Eliminate refined carbohydrates from the diet. Continue blood sugar and sugared beverages. Eat local organic when possible. Cook your own meals. Read food labels. None about healthy snacks. Portion control and food with low glycemic index 2. Exercise regularly. Try to get at least 6000 steps a day. Use a predominant to track activity level. Consider using apps like Profyle, INTTRApal, lose it, stick as needed for self-monitoring and weight management. Consider group exercises. Consider hiring a tangible personal property appraiser. Regular exercise is presaud to sustainable health and prevents as a buffer against weight regain 3. Sleep is most important for healing. Tried to sleep at least 8 hours a night. A good quality sleep needs a sleep ritual with ideal room temperature of around 68. It might help to take a shower and have no electronics in the room and sleep in a very dark room without artificial light. Start her sleep routine and get up early in the morning and go to bed on time 4. Make a social connection. Surround yourself with positive people with positive energy. Connect with friends and family. 5. Get into the habit of meditating and mindfulness while doing everything. 6. Go outside and connect with nature. C. Prescription medications Patient was educated on the use of prescription medications for medical weight loss. This is a growing list and includes phentermine, Topamax,Qsymia, contrave, belviq and saxenda. All prescription medications could have side effects including but not limited to kidney stones, seizure disorder cardiac arrhythmias heart attack pancreatitis etc. etc.. Patient was encouraged to read the prescription insert and have coaching with their pharmacist and make an informed decision about taking medication and know that these medications are being prescribed with good intentions and we do not know how a patient would react to her medication. Sudden medications are FDA approved for weight loss and there is also off label use depending on patient's inability to afford medications in an attempt to lose weight D. Behavioral counseling was done to establish a relationship between food and an mood. Patient was provided information about local counseling and psychiatry and Dr Ryan at [facility]. We would like to cover regular topics and build on low glycemic eating exercise mindful eating, using yoga and meditation along with deep breathing and connecting with friends and family. E. MASS PAT reviewed, Patient's current medications were reviewed and opinion was given on medication that can cause weight gain and can be substituted F. Patient was assessed for risk with obesity including and not limiting to atherosclerosis heart disease stroke kidney disease, restrictive lung disease, irritable bowel syndrome and overall mortality. Risk of developing prediabetes diabetes and metabolic syndrome was discussed G. Therapeutic plan: We have decided to make therapeutic plan which would include choosing wisely on calories restricting portion getting active, tracking weight, getting good quality sleep and working on time management H. Patient will follow up in (4) weeks for weight management Of note, some information is being carried forward from prior records for informational purposes only and is being cited so that efficiency, safety and quality of the patient's care is not compromised This note was prepared using voice recognition software and direct typing Please excuse inadvertent hrbp or typing errors, or uncorrected word substitutions Although every attempt has been made by the provider to proofread this document, occasional misspellings and typographical errors may still be present Due to the previous pandemic, and the use of personal protective equipment (PPE) This may decrease voice recognition accuracy Inadvertent hrbp errors may occur 12/09/2023 Dietary counseling and surveillance (ICD-10 - Z71.3) Acute Concerns/Problem List: 12/09/2023 STD testing [employer] referall Thriving on dual incretin's She has left the obesity world and we have congratulated her Continue 12.5 milligrams zbound Total time spent today was 30 minutes of which greater than 50% was spent on coordinating and counseling Patient has been found to be overweight with a BMI of (29). Patient has overweight class per BMI standards We are a board certified obesity and weight management practice Patient has trialed behavioral modification, dietary restrictions and exercise for a minimum of 6 months The most recent [place] [employer] and [place] [employer] guidelines recommend patients who have overweight BMI or obesity BMI, who also have metabolic syndrome, prediabetes, or at risk of developing type 2 diabetes should aim for a weight loss goal of at least 10% of the baseline body weight Patient counseled regarding effects of GLP/GIP-1 agonists, and other FDA approved wgt loss meds with regards to a multifactorial approach of weight loss as mentioned above and not solely appetite suppression. We have discussed the mechanism of GLP-1's/GIP, dual incretins, appetitite suppressants I think this would be fantastic option for her given her metabolic workup and body composition We have discussed the risks and benefits and side effects including/and not limited to Sarcopenia, intestinal obstruction, constipation, nausea, lethargy, headache Discussed importance of protein consumption for muscle maintenance as well as strength and resistance training ,probiotics, B12 complex biotin , iron and other nutrients, To help avoid telogen effluvium We have discussed the lifelong requirement of nutritional supplementation And adherence to an exercise regimen as well as importance of follow-up The patient understands and agrees There is no history of medullary thyroid cancer or multiple endocrine neoplasia There is also no history of cardiovascular disease, hypertension, palpitations, or arrhythmias In the setting of potential stimulant/amphetamine use such as phentermine We have also discussed risks and benefits, and the use of compounded medications to help offset the national shortages as well as financial implications vs trade name drugs Patient was reassured and welcomed to the practice. We discussed that we stress a hollistic medical approach with emphasis on lifestyle modification. Patient was informed that a healthy lifestyle with exercise and good eating habits can help reduce his risk of medical complications. He is explained that obesity increases his risk of diabetes, cardiovascular disease, or organ damage. We spent a lot of time discussing the relationship between food, exercise, sleep, mental health and obesity. Patient was counseled on the importance EATING local, organic food when possible. Patient was educated on clean 15 and dirty dozen. I provided information about reading books called The Food Rules by Julian Álvarez and Eat Fat Get Lean by Dr Madhu Ramos. Self education is important in the journey for weight management. Patient was offered diagnostic testing. We want to measure visceral adiposity, advanced body composition, adverse lipids, fatty acid balance, risk for heart disease and atherosclerosis, markers of inflammation and genetic susceptibility. Patient was counseled on weight management and was advised to lose weight using A. Meal Replacement Products We discussed the lifelong requirement of nutritional supplementation and adherence to an exercise regimen as well as importance of dietary follow-up Patient was educated on the replacement products called optifast. This is a good way of taking fixed amount of calories. It has been shown in studies to be ineffective weight management tool. We also recommend maintaining adequate protein intake and muscle composition, 1.5mg/kg This however has to be coupled with lifestyle intervention as well as laboratory data and EKG monitoring. It is impossible to know how a person will tolerate complete meal replacement. The side effects of meal replacement and weight loss could include syncopal attacks, dizziness, gallstones, potential cholecystectomy, possible heart attack and even . The benefits of meal replacement would be potential weight loss but no guarantees can be made. Meal replacement products are not covered by insurance. Once the patient has bought these products we cannot return them B. Lifestyle management which includes several strategies as below 1. Eat a low carbohydrate good fat good protein diet. Eliminate refined carbohydrates from the diet. Continue blood sugar and sugared beverages. Eat local organic when possible. Cook your own meals. Read food labels. None about healthy snacks. Portion control and food with low glycemic index 2. Exercise regularly. Try to get at least 6000 steps a day. Use a predominant to track activity level. Consider using apps like Profyle, myfitnesspal, lose it, stick as needed for self-monitoring and weight management. Consider group exercises. Consider hiring a tangible personal property appraiser. Regular exercise is persaud to sustainable health and prevents as a buffer against weight regain 3. Sleep is most important for healing. Tried to sleep at least 8 hours a night. A good quality sleep needs a sleep ritual with ideal room temperature of around 68. It might help to take a shower and have no electronics in the room and sleep in a very dark room without artificial light. Start her sleep routine and get up early in the morning and go to bed on time 4. Make a social connection. Surround yourself with positive people with positive energy. Connect with friends and family. 5. Get into the habit of meditating and mindfulness while doing everything. 6. Go outside and connect with nature. C. Prescription medications Patient was educated on the use of prescription medications for medical weight loss. This is a growing list and includes phentermine, Topamax,Qsymia, contrave, belviq and saxenda. All prescription medications could have side effects including but not limited to kidney stones, seizure disorder cardiac arrhythmias heart attack pancreatitis etc. etc.. Patient was encouraged to read the prescription insert and have coaching with their pharmacist and make an informed decision about taking medication and know that these medications are being prescribed with good intentions and we do not know how a patient would react to her medication. Sudden medications are FDA approved for weight loss and there is also off label use depending on patient's inability to afford medications in an attempt to lose weight D. Behavioral counseling was done to establish a relationship between food and an mood. Patient was provided information about local counseling and psychiatry and Dr Ryan at [facility]. We would like to cover regular topics and build on low glycemic eating exercise mindful eating, using yoga and meditation along with deep breathing and connecting with friends and family. E. MASS PAT reviewed, Patient's current medications were reviewed and opinion was given on medication that can cause weight gain and can be substituted F. Patient was assessed for risk with obesity including and not limiting to atherosclerosis heart disease stroke kidney disease, restrictive lung disease, irritable bowel syndrome and overall mortality. Risk of developing prediabetes diabetes and metabolic syndrome was discussed G. Therapeutic plan: We have decided to make therapeutic plan which would include choosing wisely on calories restricting portion getting active, tracking weight, getting good quality sleep and working on time management H. Patient will follow up in (4) weeks for weight management Of note, some information is being carried forward from prior records for informational purposes only and is being cited so that efficiency, safety and quality of the patient's care is not compromised This note was prepared using voice recognition software and direct typing Please excuse inadvertent hrbp or typing errors, or uncorrected word substitutions Although every attempt has been made by the provider to proofread this document, occasional misspellings and typographical errors may still be present Due to the previous pandemic, and the use of personal protective equipment (PPE) This may decrease voice recognition accuracy Inadvertent hrbp errors may occur 02/02/2024 Encounter for immunization (ICD-10 - Z23) Patient is here for weight management follow-up. We focused on significance of healthy lifestyle changes. We talked about need to track steps with goal between 6000-10,000 steps daily, focus on portion control, read food labels, get adequate sleep between 7 to 8 hours, get adequate rest to the body, meditate, frequent nutritious meals including vegetables and healthy choices of lean meats, fish, and elimination of refined carbohydrates. We also talked about mindfulness and mindful eating. Particular focus was on improving protein consumption and incorporating some resistance training to maintain and build muscle mass.. Total time spent with 30 minutes with greater than 50% spent on counseling and coordinating care. 01/03/2024: Weight 181 pounds, BMI 27.52. Seca scan unable to be completed today, equipment is malfunctioning. Patient demonstrates understanding. Has been on 12.5 mg of Zepbound for the past 3 months, reports no side effects, however states that appetite is less suppressed at this time. Has had cravings and has been feeling hungrier over the past several weeks. Walking for exercise. Will increase dose of Zepbound to 15 mg once weekly subcutaneous injection. Advised on proper use of medication and expected side effect profile including but not limited to nausea, constipation, acid reflux, and fatigue. She will follow-up in the office in approximately 4 weeks for weight management. 02/02/2024: Weight 180 pounds, BMI 27.37. Seca scan completed interpreted with the patient today. She has a slight increase in fat mass from 63-66 pounds. Maintaining good muscle mass. Small increase from 1.5-1.7 for visceral adipose tissue index. Has been on Zepbound 15 mg once weekly. Tolerating medication well. Reports good suppression of her appetite. Has introduced cycling into her exercise routine. Will continue current dose. Discussed proper use of the medication including rotating injection sites and expected side effect profile. She will follow-up the office in approximately 1 month for continued weight management. All patient questions answered at this time. All questions have been answered to patient's satisfaction. Patient verbalized understanding of diagnosis and treatments explained. Advised to call sooner prior to next visit it any questions/concerns arise. Case discussed with collaborating physician Oscar Irizarry who reviewed the assessment and plan. Chart, medications, labs, vital signs reviewed. Dictation was accomplished with the use of [employer] voice recognition software, which is prone to medical misidentifications and grammatical errors. This are unintentional and the practitioner does try to identify and correct these, but some could still be present. Please do not hesitate to contact practitioner for clarification. 03/03/2024 Overweight (ICD-10 - E66.3) Patient is here for weight management follow-up. We focused on significance of healthy lifestyle changes. We talked about need to track steps with goal between 6000-10,000 steps daily, focus on portion control, read food labels, get adequate sleep between 7 to 8 hours, get adequate rest to the body, meditate, frequent nutritious meals including vegetables and healthy choices of lean meats, fish, and elimination of refined carbohydrates. We also talked about mindfulness and mindful eating. Particular focus was on adding adjunctive topiramate to aid weight loss. Total time spent with 30 minutes with greater than 50% spent on counseling and coordinating care. 11/30/2022: Weight 213.2 pounds, BMI 32.41 02/19/2023: Weight 209.7 pounds, BMI 31.88 03/23/2023: Weight 209.8 pounds, BMI 31.9 04/22/2023: Weight 201 pounds, BMI 30.56 08/10/2023: Weight 192 pounds, BMI 29.19 12/07/2023: Weight 181 pounds, BMI 27.5 to 01/03/2024: Weight 181 pounds, BMI 27.52. Seca scan unable to be completed today, equipment is malfunctioning. Patient demonstrates understanding. Has been on 12.5 mg of Zepbound for the past 3 months, reports no side effects, however states that appetite is less suppressed at this time. Has had cravings and has been feeling hungrier over the past several weeks. Walking for exercise. Will increase dose of Zepbound to 15 mg once weekly subcutaneous injection. Advised on proper use of medication and expected side effect profile including but not limited to nausea, constipation, acid reflux, and fatigue. She will follow-up in the office in approximately 4 weeks for weight management. 02/02/2024: Weight 180 pounds, BMI 27.37. Seca scan completed interpreted with the patient today. She has a slight increase in fat mass from 63-66 pounds. Maintaining good muscle mass. Small increase from 1.5-1.7 for visceral adipose tissue index. Has been on Zepbound 15 mg once weekly. Tolerating medication well. Reports good suppression of her appetite. Has introduced cycling into her exercise routine. Will continue current dose. Discussed proper use of the medication including rotating injection sites and expected side effect profile. She will follow-up the office in approximately 1 month for continued weight management. All patient questions answered at this time. 03/03/2024: Weight 180 pounds, BMI 27.37. Seca scan completed today and interpreted with the patient. Patient has been plateauing for the past several months with no significant change in weight. No change in fat mass since previous visit. Currently on Zepbound 15 mg once weekly. Reports no side effects at this time. Because she has been plateauing will initiate topiramate as adjunctive medication for further weight loss. Advised that the medication has a effect of appetite suppression. Advised to take the medication once daily and if she tolerates well after 1 week can increase dose to 2 tablets once daily totaling 50 mg. Discussed expected side effect profile including but not limited to abdominal pain, nausea, diarrhea, dizziness. She will follow-up in the office in approximately 4 weeks for continued weight management. All questions have been answered to patient's satisfaction. Patient verbalized understanding of diagnosis and treatments explained. Advised to call sooner prior to next visit it any questions/concerns arise. Case discussed with collaborating physician Oscar Irizarry who reviewed the assessment and plan. Chart, medications, labs, vital signs reviewed. Dictation was accomplished with the use of [employer] voice recognition software, which is prone to medical misidentifications and grammatical errors. This are unintentional and the practitioner does try to identify and correct these, but some could still be present. Please do not hesitate to contact practitioner for clarification. 12/09/2023 High risk heterosexual behavior (ICD-10 - Z72.51) Acute Concerns/Problem List: 12/09/2023 STD testing W[employer]AY [employer]IC [employer] referall Thriving on dual incretin's She has left the obesity world and we have congratulated her Continue 12.5 milligrams zbound Total time spent today was 30 minutes of which greater than 50% was spent on coordinating and counseling Patient has been found to be overweight with a BMI of (29). Patient has overweight class per BMI standards We are a board certified obesity and weight management practice Patient has trialed behavioral modification, dietary restrictions and exercise for a minimum of 6 months The most recent [place] [employer]in[employer] and [place] [employer] guidelines recommend patients who have overweight BMI or obesity BMI, who also have metabolic syndrome, prediabetes, or at risk of developing type 2 diabetes should aim for a weight loss goal of at least 10% of the baseline body weight Patient counseled regarding effects of GLP/GIP-1 agonists, and other FDA approved wgt loss meds with regards to a multifactorial approach of weight loss as mentioned above and not solely appetite suppression. We have discussed the mechanism of GLP-1's/GIP, dual incretins, appetitite suppressants I think this would be fantastic option for her given her metabolic workup and body composition We have discussed the risks and benefits and side effects including/and not limited to Sarcopenia, intestinal obstruction, constipation, nausea, lethargy, headache Discussed importance of protein consumption for muscle maintenance as well as strength and resistance training ,probiotics, B12 complex biotin , iron and other nutrients, To help avoid telogen effluvium We have discussed the lifelong requirement of nutritional supplementation And adherence to an exercise regimen as well as importance of follow-up The patient understands and agrees There is no history of medullary thyroid cancer or multiple endocrine neoplasia There is also no history of cardiovascular disease, hypertension, palpitations, or arrhythmias In the setting of potential stimulant/amphetamine use such as phentermine We have also discussed risks and benefits, and the use of compounded medications to help offset the national shortages as well as financial implications vs trade name drugs Patient was reassured and welcomed to the practice. We discussed that we stress a hollistic medical approach with emphasis on lifestyle modification. Patient was informed that a healthy lifestyle with exercise and good eating habits can help reduce his risk of medical complications. He is explained that obesity increases his risk of diabetes, cardiovascular disease, or organ damage. We spent a lot of time discussing the relationship between food, exercise, sleep, mental health and obesity. Patient was counseled on the importance EATING local, organic food when possible. Patient was educated on clean 15 and dirty dozen. I provided information about reading books called The Food Rules by Julian Álvarez and Eat Fat Get Lean by Dr Madhu Ramos. Self education is important in the journey for weight management. Patient was offered diagnostic testing. We want to measure visceral adiposity, advanced body composition, adverse lipids, fatty acid balance, risk for heart disease and atherosclerosis, markers of inflammation and genetic susceptibility. Patient was counseled on weight management and was advised to lose weight using A. Meal Replacement Products We discussed the lifelong requirement of nutritional supplementation and adherence to an exercise regimen as well as importance of dietary follow-up Patient was educated on the replacement products called optifast. This is a good way of taking fixed amount of calories. It has been shown in studies to be ineffective weight management tool. We also recommend maintaining adequate protein intake and muscle composition, 1.5mg/kg This however has to be coupled with lifestyle intervention as well as laboratory data and EKG monitoring. It is impossible to know how a person will tolerate complete meal replacement. The side effects of meal replacement and weight loss could include syncopal attacks, dizziness, gallstones, potential cholecystectomy, possible heart attack and even . The benefits of meal replacement would be potential weight loss but no guarantees can be made. Meal replacement products are not covered by insurance. Once the patient has bought these products we cannot return them B. Lifestyle management which includes several strategies as below 1. Eat a low carbohydrate good fat good protein diet. Eliminate refined carbohydrates from the diet. Continue blood sugar and sugared beverages. Eat local organic when possible. Cook your own meals. Read food labels. None about healthy snacks. Portion control and food with low glycemic index 2. Exercise regularly. Try to get at least 6000 steps a day. Use a predominant to track activity level. Consider using apps like Profyle, myfitnesspal, lose it, stick as needed for self-monitoring and weight management. Consider group exercises. Consider hiring a tangible personal property appraiser. Regular exercise is persaud to sustainable health and prevents as a buffer against weight regain 3. Sleep is most important for healing. Tried to sleep at least 8 hours a night. A good quality sleep needs a sleep ritual with ideal room temperature of around 68. It might help to take a shower and have no electronics in the room and sleep in a very dark room without artificial light. Start her sleep routine and get up early in the morning and go to bed on time 4. Make a social connection. Surround yourself with positive people with positive energy. Connect with friends and family. 5. Get into the habit of meditating and mindfulness while doing everything. 6. Go outside and connect with nature. C. Prescription medications Patient was educated on the use of prescription medications for medical weight loss. This is a growing list and includes phentermine, Topamax,Qsymia, contrave, belviq and saxenda. All prescription medications could have side effects including but not limited to kidney stones, seizure disorder cardiac arrhythmias heart attack pancreatitis etc. etc.. Patient was encouraged to read the prescription insert and have coaching with their pharmacist and make an informed decision about taking medication and know that these medications are being prescribed with good intentions and we do not know how a patient would react to her medication. Sudden medications are FDA approved for weight loss and there is also off label use depending on patient's inability to afford medications in an attempt to lose weight D. Behavioral counseling was done to establish a relationship between food and an mood. Patient was provided information about local counseling and psychiatry and Dr Ryan at [facility]. We would like to cover regular topics and build on low glycemic eating exercise mindful eating, using yoga and meditation along with deep breathing and connecting with friends and family. E. MASS PAT reviewed, Patient's current medications were reviewed and opinion was given on medication that can cause weight gain and can be substituted F. Patient was assessed for risk with obesity including and not limiting to atherosclerosis heart disease stroke kidney disease, restrictive lung disease, irritable bowel syndrome and overall mortality. Risk of developing prediabetes diabetes and metabolic syndrome was discussed G. Therapeutic plan: We have decided to make therapeutic plan which would include choosing wisely on calories restricting portion getting active, tracking weight, getting good quality sleep and working on time management H. Patient will follow up in (4) weeks for weight management Of note, some information is being carried forward from prior records for informational purposes only and is being cited so that efficiency, safety and quality of the patient's care is not compromised This note was prepared using voice recognition software and direct typing Please excuse inadvertent hrbp or typing errors, or uncorrected word substitutions Although every attempt has been made by the provider to proofread this document, occasional misspellings and typographical errors may still be present Due to the previous pandemic, and the use of personal protective equipment (PPE) This may decrease voice recognition accuracy Inadvertent hrbp errors may occur 08/10/2023 Vitamin D deficiency, unspecified (ICD-10 - E55.9) 08/10/2023 Encounter for screening for other suspected endocrine disorder (ICD-10 - Z13.29) PLAN OF TREATMENT Pending Test Test Name Order Date CHLAMYDIA GC AMP PROBE, URINE 12/09/2023 Hepatitis C Antibody 12/09/2023 LIPID PANEL, STANDARD 08/10/2023 COMPREHENSIVE METABOLIC PANEL 08/10/2023 CBC (INCLUDES DIFF/PLT) 08/10/2023 URINALYSIS, COMPLETE 08/10/2023 RPR (DX) W/REFL TITER AND CONFIRMATORY T ESTING 12/09/2023 HEMOGLOBIN A1c 08/10/2023 TSH 08/10/2023 VITAMIN D,25-OH,TOTAL,IA 08/10/2023 HSV 1/2 IGG,TYPE SPECIFIC AB 12/09/2023 HIV 1 AND 2 SCREEN 12/09/2023 Next Appt Details Provider Name:AN ERIC , 03/31/2024 09:45:00 AM, [address] [facility], [facility] [address], [place], [address], Insurance Providers Payer Name Payer Address Payer Phone Subscriber Number Group Number Insured Name Patient Relationship to Insured Coverage Start Date Coverage End Date [facility] [address] [place] [phone] [id number] Denise Garcia Self - patient is the insured MEDICATIONS ADMINISTERED Medication Instructions Date of Administration Dosage Notes Semaglutide 02/19/2023 0.25 mg Semaglutide 02/25/2023 0.25 mg Semaglutide 03/04/2023 0.25 mg Semaglutide 03/11/2023 0.25 mg Semaglutide 03/23/2023
--- OUTSIDE RECORDS SUMMARY | 2024-03-28 21:23 | XMS_ITS | Continuity of Care Document ---
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 It does not include entries that were removed or entered in error. Problem Status Onset Date Problem Type Date of Resolution Comments Source ingrowing toenail Active 04/04/2015 Condition D oD constipation Inactive Condition DoD visit for: services physical Active Condition DoD visit for: screening exam pulmonary tuberculosis Inactive Condition DoD Medications Combined list of outpatient medications from Department of Defense and Veterans Affairs facilities.Medications provided include 1) outpatient medications from the last 15 months, and 2) patient-reported medications. Medication Details Route Status Patient Instructions Prescription Expires Prescription Number Last Dispense Date Ordering Provider Order Date Order Qty Source ALBUTEROL SULFATE HFA (albuterol sulfate), 90 MCG, HFA AER AD, INHALATION, LUPIN PHARMACEU, 8.5 g CANISTER Cancele d [id number] : 2022 0 Pharmac y Data Transac tion Service Facilit y ALBUTEROL SULFATE HFA (albuterol sulfate), 90 MCG, HFA AER AD, INHALATION, TEVA [place], 8.5 g CANISTER Cancele d [id number] : 2023 0 Pharmac y Data Transac tion Service Facilit y AZATHIOPRIN E (AZATHIOPRI NE), 50MG, TABLET, ORAL, ZYDUS PHARMACEU, 100 ea. BOTTLE Cancele d [id number] : 2023 0 Pharmac y Data Transac tion Service Facilit y AZITHROMYCI N (azithromyc in), 250 MG, TABLET, ORAL, AUROBINDO PHARM, 6 ea. BLIST PACK Cancele d [id number] : 2022 0 Pharmac y Data Transac tion Service Facilit y AZITHROMYCI N (azithromyc in), 250 MG, TABLET, ORAL, AUROBINDO PHARM, 6 ea. BLIST PACK Active [id number] 2022 6 Pharmac y Data Transac tion Service Facilit y BENZONATATE (benzonatat e), 100 MG, CAPSULE, ORAL, STRIDES PHARMA, 100 ea. BOTTLE Cancele d [id number] : 2022 0 Pharmac y Data Transac tion Service Facilit y Benzonatate ([employer]) 100 CAPSULE in 1 BOTTLE Cancele d [id number] : 2022 0 Pharmac y Data Transac tion Service Facilit y BUPROPION XL (bupropion HCl), 150 MG, TAB ER 24H, ORAL, LUPIN PHARMACEU, 90 ea. BOTTLE Cancele d [id number] : 2023 0 Pharmac y Data Transac tion Service Facilit y BUPROPION XL (bupropion HCl), 150 MG, TAB ER 24H, ORAL, LUPIN PHARMACEU, 90 ea. BOTTLE Active [id number] 2023 30 Pharmac y Data Transac tion Service Facilit y BUPROPION XL (bupropion HCl), 150 MG, TAB ER 24H, ORAL, LUPIN PHARMACEU, 90 ea. BOTTLE Active [id number] 2023 30 Pharmac y Data Transac tion Service Facilit y BUPROPION XL (bupropion HCl), 150 MG, TAB ER 24H, ORAL, LUPIN PHARMACEU, 90 ea. BOTTLE Active [id number] 2023 30 Pharmac y Data Transac tion Service Facilit y BUPROPION XL (bupropion HCl), 300 MG, TAB ER 24H, ORAL, [employer], 500 ea. BOTTLE Cancele d [id number] : 2023 0 Pharmac y Data Transac tion Service Facilit y BUPROPION XL (bupropion HCl), 300 MG, TAB ER 24H, ORAL, LUPIN PHARMACEU, 500 ea. BOTTLE Cancele d [id number] : 2023 0 Pharmac y Data Transac tion Service Facilit y BUPROPION XL (bupropion HCl), 300 MG, TAB ER 24H, ORAL, LUPIN PHARMACEU, 500 ea. BOTTLE Cancele d [id number] : 2023 0 Pharmac y Data Transac tion Service Facilit y BUPROPION XL (bupropion HCl), 300 MG, TAB ER 24H, ORAL, LUPIN PHARMACEU, 500 ea. BOTTLE Active [id number] 2023 30 Pharmac y Data Transac tion Service Facilit y BUPROPION XL (bupropion HCl), 300 MG, TAB ER 24H, ORAL, LUPIN PHARMACEU, 500 ea. BOTTLE Active [id number] 2023 30 Pharmac y Data Transac tion Service Facilit y BUPROPION XL (bupropion HCl), 300 MG, TAB ER 24H, ORAL, LUPIN PHARMACEU, 500 ea. BOTTLE Active [id number] 2023 30 Pharmac y Data Transac tion Service Facilit y ONDANSETRON HCL (ONDANSETRO N HCL), 8MG, TABLET, ORAL, AUROBINDO PHARM, 30 ea. BOTTLE Cancele d [id number] : 2023 0 Pharmac y Data Transac tion Service Facilit y WEGOVY (semaglutid e), 1.7MG/0.75, PEN INJCTR, SUBCUT, LITO NORDISK, .75 ml SYRINGE Cancele d [id number] : 2023 0 Pharmac y Data Transac tion Service Facilit y WEGOVY (semaglutid e), 1.7MG/0.75, PEN INJCTR, SUBCUT, LITO NORDISK, .75 ml SYRINGE Active [id number] 4 2023 3 Pharmac y Data Transac tion Service Facilit y WEGOVY (semaglutid e), 1MG/0.5ML, PEN INJCTR, SUBCUT, LITO NORDISK, .5 ml SYRINGE Cancele d [id number] : 2023 0 Pharmac y Data Transac tion Service Facilit y WEGOVY (semaglutid e), 1MG/0.5ML, PEN INJCTR, SUBCUT, LITO NORDISK, .5 ml SYRINGE Active [id number] 2023 2 Pharmac y Data Transac tion Service Facilit y ZEPBOUND (tirzepatid e), 10MG/0.5ML, PEN INJCTR, SUBCUT, [employer] .5 ml SYRINGE Active [id number] 2023 2 Pharmac y Data Transac tion Service Facilit y ZEPBOUND (tirzepatid e), 10MG/0.5ML, PEN INJCTR, SUBCUT, [employer] .5 ml SYRINGE Cancele d [id number] : 2023 0 Pharmac y Data Transac tion Service Facilit y ZEPBOUND (tirzepatid e), 12.5MG/0.5, PEN INJCTR, SUBCUT, [employer] .5 ml SYRINGE Active [id number] 2023 2 Pharmac y Data Transac tion Service Facilit y ZEPBOUND (tirzepatid e), 12.5MG/0.5, PEN INJCTR, SUBCUT, [employer] .5 ml SYRINGE Cancele d [id number] : 2023 0 Pharmac y Data Transac tion Service Facilit y ZEPBOUND (tirzepatid e), 12.5MG/0.5, PEN INJCTR, SUBCUT, [employer] .5 ml SYRINGE Cancele d [id number] : 2023 0 Pharmac y Data Transac tion Service Facilit y ZEPBOUND (tirzepatid e), 5 MG/0.5ML, PEN INJCTR, SUBCUT, [employer] .5 ml SYRINGE Cancele d [id number] : 2023 0 Pharmac y Data Transac tion Service Facilit y ZEPBOUND (tirzepatid e), 5 MG/0.5ML, PEN INJCTR, SUBCUT, [employer] .5 ml SYRINGE Cancele d [id number] : 2023 0 Pharmac y Data Transac tion Service Facilit y ZEPBOUND (tirzepatid e), 5 MG/0.5ML, PEN INJCTR, SUBCUT, [employer] .5 ml SYRINGE Active [id number] 2023 2 Pharmac y Data Transac tion Service Facilit y ZEPBOUND (tirzepatid e), 7.5 MG/0.5, PEN INJCTR, SUBCUT, [employer] .5 ml SYRINGE Cancele d [id number] : 2023 0 Pharmac y Data Transac tion Service Facilit y ZEPBOUND (tirzepatid e), 7.5 MG/0.5, PEN INJCTR, SUBCUT, [employer] .5 ml SYRINGE Cancele d [id number] : 2023 0 Pharmac y Data Transac tion Service Facilit y ZEPBOUND (tirzepatid e), 7.5 MG/0.5, PEN INJCTR, SUBCUT, [employer] .5 ml SYRINGE Active [id number] 2023 2 Pharmac y Data Transac tion Service Facilit y Allergies, Adverse Reactions, Alerts Combined list of allergies from Department of Defense and Veterans Affairs facilities. It does not include entries that were removed or entered in error. Substance Category Reaction Severity Reaction type Status Date Reported Comments Source No Known Allergies Drug allergy (disorder) active 11/29/2012 [facility] Immunizations Combined list of available immunizations from the Department of Defense and Veterans Affairs facilities. 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 Status Comments Source SARS-CoV-2 mRNA(totrace rza-bxri-chm) vac 2021 TRS 217 [facility] ed SARS-CoV- 2 mRNA(tozi nameran-t ris-suc)v 05/30/21 Given Ambulat ory Pharmac y SARS-CoV-2 mRNA(toziname xqw-uceh-ros) vac 2021 217 PFIZER complet ed SARS-CoV- 2 mRNA(abbe nameran-t ris-suc)v 05/30/21 Given Ambulat ory Pharmac y COVID-19, mRNA, LNP-S, PF, 30 mcg/0.3 mL dose, eryn-sucrose 2021 RICK Sethi, [facility] (PFR) Not Given COVID-19, mRNA, LNP-S, PF, 30 mcg/0.3 mL dose, eryn-sucr ose DoD influenza, injectable, quadrivalent- pf 2021 [id number] 150 [employer] comple t ed influenza , injectabl e, quadrival ent-pf 05/19/21 Given Ambulat ory Pharmac y COVID Vaccine [facility] 2021 [id number] PFIZER complet ed COVID Vaccine [facility] 05/04/21 Given Ambulat ory Pharmac y SARS-CoV-2 mRNA(toziname qqe-ascv-rat) vac 2021 TRS 217 PFIZER complet ed SARS-CoV- 2 mRNA(abbe nameran-t ris-suc)v 05/03/21 Given Ambulat ory Pharmac y SARS-CoV-2 mRNA(toziname ccz-esbr-moi) vac 2021 217 PFIZER complet ed SARS-CoV- 2 mRNA(abbe nameran-t ris-suc)v 05/03/21 Given Ambulat ory Pharmac y COVID-19, mRNA, LNP-S, PF, 30 mcg/0.3 mL dose, eryn-sucrose 2021 RICK Sethi, [facility] (PFR) Not Given COVID-19, mRNA, LNP-S, PF, 30 mcg/0.3 mL dose, eryn-sucr ose DoD COVID Vaccine [facility] 2020 TRS 208 PFIZER complet ed COVID Vaccine Pfizer 12/27/20 Given Ambulat ory Pharmac y COVID Vaccine Pfizer 2020 208 PFIZER complet ed COVID Vaccine Pfizer 12/27/20 Given Ambulat ory Pharmac y COVID-19, mRNA, LNP-S, PF, 30 mcg/0.3 mL dose [facility] [place] ([facility] Not Given COVID-19, mRNA, LNP-S, PF, 30 mcg/0.3 mL dose DoD Influenza, inj, MDCK, quadrivalent- pf 2019 [id number] 171 [employer] complet ed Influenza , inj, MDCK, quadrival ent-pf 03/26/19 Given Ambulat ory Pharmac y influenza, injectable, quadrivalent- pf 2016 [id number] 150 [employer] complet ed influenza , injectabl e, quadrival ent-pf 01/03/17 Given Ambulat ory Pharmac y influenza, seasonal, injectable 2015 [id number] 141 [employer] complet ed influenza , seasonal, injectabl e 11/22/15 Given Ambulat ory Pharmac y anthrax vaccine 2015 [id number] 24 [employer] complet ed anthrax vaccine 07/10/15 Given Ambulat ory Pharmac y anthrax vaccine 2015 [id number] 24 [employer] complet ed anthrax vaccine 07/10/15 Given Ambulat ory Pharmac y anthrax vaccine 3 2015 [id number] 24 [employer] Adelaida (MIP) complet ed anthrax vaccine DoD anthrax vaccine 2014 [id number] 24 [employer] complet ed anthrax vaccine 02/05/15 Given Ambulat ory Pharmac y anthrax vaccine 2014 [id number] 24 [employer] complet ed anthrax vaccine 02/05/15 Given Ambulat ory Pharmac y anthrax vaccine 2 2014 [id number] 24 [employer] [place] (MIP) complet ed anthrax vaccine DoD anthrax vaccine 2014 [id number] 24 [employer] complet ed anthrax vaccine 01/07/15 Given Ambulat ory Pharmac y anthrax vaccine 1 2014 [id number] 24 [employer] Adelaida (MIP) complet ed anthrax vaccine DoD influenza, seasonal, injectable-pf 2014 [id number] 140 Unknown complet ed influenza , seasonal, injectabl e-pf 11/25/14 Given Ambulat ory Pharmac y influenza, seasonal, injectable-pf 2014 [id number] 140 Unknown complet ed influenza , seasonal, injectabl e-pf 11/25/14 Given Ambulat ory Pharmac y Influenza, seasonal, injectable, preservative free 1 2014 [id number] 140 Other (OTH) complet ed Influenza , seasonal, injectabl e, preservat cordell free DoD typhoid Vi capsular polysaccharid e vac 2014 [id number] 101 Unknown complet ed typhoid Vi capsular polysacch aride vac 03/25/14 Given Ambulat ory Pharmac y typhoid Vi capsular polysaccharid e vac 2014 [id number] 101 Unknown complet ed typhoid Vi capsular polysacch aride vac 03/25/14 Given Ambulat ory Pharmac y typhoid Vi capsular polysaccharid e vaccine 1 2014 K0330 101 Other (OTH) complet ed typhoid Vi capsular polysacch aride vaccine DoD influenza, seasonal, injectable-pf 2013 [id number] 140 Unknown complet ed influenza , seasonal, injectabl e-pf 12/10/13 Given Ambulat ory Pharmac y influenza, seasonal, injectable-pf 2013 [id number] 140 Unknown complet ed influenza , seasonal, injectabl e-pf 12/10/13 Given Ambulat ory Pharmac y Influenza, seasonal, injectable, preservative free 1 2013 [id number] 140 Unknown (UNK) comple t ed Influenza , seasonal, injectabl e, preservat cordell free DoD HepB, Adult 2013 99B32 43 GlaxoSmithKli ne complet ed HepB, Adult 07/16/13 Given Ambulat ory Pharmac y hepatitis A adult vaccine 2013 4 52 GlaxoSmithKli ne complet ed hepatitis A adult vaccine 07/16/13 Given Ambulat ory Pharmac y HepB, Adult 2013 99B32 43 GlaxoSmithKli ne complet ed HepB, Adult 07/16/13 Given Ambulat ory Pharmac y hepatitis A adult vaccine 2013 4 52 GlaxoSmithKli ne complet ed hepatitis A adult vaccine 07/16/13 Given Ambulat ory Pharmac y hepatitis B vaccine, adult dosage 3 2013 99B32 43 SmithKline (SKB) complet ed hepatitis B vaccine, adult dosage DoD hepatitis A vaccine, adult dosage [address] [place] [address] (SKB) complet ed hepatitis A vaccine, adult dosage DoD tetanus, diphtheria, acellular pertu is 2012 [id number] 0CA 115 GlaxoSmithKli ne complet ed tetanus, diphtheri a, acellular pertussis 09/24/12 Given Ambulat ory Pharmac y hepatitis A-hepatitis B vaccine 2012 [id number] 104 GlaxoSmithKli ne complet ed hepatitis A-hepatit is B vaccine 09/24/12 Given Ambulat ory Pharmac y adenovirus vaccine, live 2012 [id number] 2 143 [employer]eva [employer] ls complet ed adenoviru s vaccine, live 09/24/12 Given Ambulat ory Pharmac y meningococcal A,C,Y,W-135 (MCV4P) 2012 [id number] 114 sanofi pasteur complet ed meningoco ccal A,C,Y,W-1 35 (MCV4P) 09/24/12 Given Ambulat ory Pharmac y hepatitis A-hepatitis B vaccine 2012 [id number] 104 GlaxoSmithKli ne complet ed hepatitis A-hepatit is B vaccine 09/24/12 Given Ambulat ory Pharmac y poliovirus vaccine, inactivated 2012 F1082-0 10 sanofi pasteur complet ed polioviru s vaccine, inactivat ed 09/24/12 Given Ambulat ory Pharmac y hepatitis A-hepatitis B vaccine 2012 [id number] 104 GlaxoSmithKli ne complet ed hepatitis A-hepatit is B vaccine 09/24/12 Given Ambulat ory Pharmac y meningococcal A,C,Y,W-135 (MCV4P) 2012 [id number] 114 sanofi pasteur complet ed meningoco ccal A,C,Y,W-1 35 (MCV4P) 09/24/12 Given Ambulat ory Pharmac y poliovirus vaccine, inactivated 2012 U4008-1 10 sanofi pasteur complet ed polioviru s vaccine, inactivat ed 09/24/12 Given Ambulat ory Pharmac y tetanus, diphtheria, acellular pertu is 2012 [id number] 0CA 115 GlaxoSmithKli ne complet ed tetanus, diphtheri a, acellular pertussis 09/24/12 Given Ambulat ory Pharmac y adenovirus vaccine, live 2012 [id number] 2 143 [employer]eva [employer] ls complet ed adenoviru s vaccine, live 09/24/12 Given Ambulat ory Pharmac y poliovirus vaccine, inactivated 1 2012 A3410-3 10 Sanofi Pasteur (PMC) complet ed polioviru s vaccine, inactivat ed DoD hepatitis A and hepatitis B vaccine 1 2012 [id number] 104 [employer]line (SKB) complet ed hepatitis A and hepatitis B vaccine DoD meningococcal polysaccharid e (groups A, C, Y and W-135) diphtheria toxoid conjugate vaccine (MCV4P) 1 2012 [id number] 114 Sanofi Pasteur (PMC) complet ed meningoco ccal polysacch aride (groups A, C, Y and W-135) diphtheri a toxoid conjugate vaccine (MCV4P) DoD tetanus toxoid, reduced diphtheria toxoid, and acellular pertu is vaccine, adsorbed 1 2012 [id number] 0CA 115 [employer] (SKB) complet ed tetanus toxoid, reduced diphtheri a toxoid, and acellular pertussis vaccine, adsorbed DoD Adenovirus, type 4 and type 7, live, oral 1 2012 [id number] 2 143 [facility] (BRR) complet ed Adenoviru s, type 4 and type 7, live, oral DoD measles, mumps and rubella virus vaccine 1 2012 UNK 03 Unknown (UNK) Not Given measles, mumps and rubella virus vaccine DoD varicella virus vaccine 1 2012 UNK 21 Unknown (UNK) Not Given varicella virus vaccine DoD tuberculin purified protein derivative 2012 [id number] 96 [facility] complet ed tuberculi n purified protein derivativ e 09/22/12 Given Ambulat ory Pharmac y Vital Signs Combined list of inpatient and outpatient Vital Signs from Department of Defense and Veterans Affairs, ranging from 12 months to all on record, depending upon the facility. Vital Sign Value Date Comments Source No data available for this section Ambulatory Pharmacy Encounters Combined list of: 1) Encounters from Department of Veterans Affairs facilities going back up to thelast 18 months. 2) Encounters from the Department of Defense facilities going back up to 280 months. Location Location Details Encounter Type Encounter Number Reason For Visit Attending Provider ADM Date DC Date Status Disposition Source [facility](ZAIN C Post Immunizat ion) OUTPATIENT [id number] IET PPD RASH, KITTY GARZON 09/22 Released w/o Limitations [facility](M C Post Immuniz ation) [facility](PES Optometry -Trainee) OUTPATIENT [id number] ALISHA LANGFORD 09/22 Released w/o Limitations [facility](P ES Optomet ry-Ruben nee) [facility] Ambulator y) OUTPATIENT [id number] Notes Entered by: FISH MENENDEZ 29 Nov 2012 0614 ------- ------- ------- ------- -- NELLA ABDALLA 11/29 Released w/o Limitations [facility](T MC Ambulat ory) [place]([facility] [address]) OUTPATIENT [id number] Notes Entered by: CAMELIA JONES 08 Jan 2015 0922 ------- ------- ------- ------- -- MOB - WILLIAM LARSEN 01/08 Released w/o Limitations [place]([facility] [address]) [place] ) OUTPATIENT [id number] Notes Entered by: VALDEMAR WHITTINGTON 12 Feb 2015 1001 ------- ------- ------- ------- -- CONTROL REMOVAL JARRETT MEDINA 02/12 Released w/o Limitations [place] [place]) OUTPATIENT [id number] [employer] on Removal . SAQIB SILVA 02/13 Released w/o Limitations [place]Gyne col[facility]) Theater Facility OUTPATIENT [id number] Theater Provider 04/04 Released with Work/Duty Limitations Theater Facilit [facility] OUTPATIENT [id number] Theater Provider 04/08 Released with Work/Duty Limitations Theater Facilit y Theater Facility OUTPATIENT [id number] Theater Provider 04/09 Released with Work/Duty Limitations Theater Facilit y [place] Hearing Conservat ion) OUTPATIENT [id number] Notes Entered by: CATHIE COTTRELL 14 Nov 2015 1543 ------- ------- ------- ------- -- COURTNEY HERRERA 11/13 Released w/o Limitations [place] Hearing Conserv ation) [place] [address]) OUTPATIENT [id number] Notes Entered by: EWA ROBERT 14 Nov 2015 1559 ------- ------- ------- ------- -- SHADI MENDOZA 11/13 Released w/o Limitations [place]([facility] [address]) [place] [address]) OUTPATIENT [id number] Notes Entered by: ARNOLDO DANIEL 15 Nov 2015 1101 ------- ------- ------- ------- -- DUANE MAYBERRY 11/14 Released w/o Limitations [place]([facility] [address]) Ambulator y Pharmacy [facility] [id number] 680 06/03 Ambulat ory Pharmac y No Facility Access History [id number] 06/03 No Facilit y Access Procedures Combined list of: 1) Procedures from Department of Veterans Affairs facilities going back up to thelast 18 months, not all VA non-surgical procedures are included; 2) All procedures from the Department of Defense facilities. Procedure Procedure Type Code Date Perfomer Comments Sourc e No data available for this section Ambulato ry Pharmacy SCREENING TEST OF VISUAL ACUITY, QUANTITATIVE, BILATERAL 09/23/19 13 [facility] SKIN TEST; TUBERCULOSIS, INTRADERMAL 09/23/19 13 [facility] AUDIOMETRIC TESTING OF GROUPS 11/14/19 16 [facility] REMOVAL, IMPLANTABLE CONTRACEPTIVE CAPSULES 02/14/20 15 [facility] ANTHRAX VACCINE, FOR SUBCUTANEOUS OR INTRAMUSCULAR USE 02/06/20 15 [facility] ANTHRAX VACCINE, FOR SUBCUTANEOUS OR INTRAMUSCULAR USE 01/08/20 15 [facility] Audiometry Group Testing Audiometry Group Testing 38222 11/15/19 16 COURTNEY SAN [facility] Wound / Incision Care Use Of Wet-To-Dry Aneesh ings Not Prescribed / Recommended Wound / Incision Care Use Of Wet-To-Dry Dressings Not Prescribed / Recommended 4266F 04/09/19 16 Theater Provider [facility] Avulsion Of Nail Plate - One Avulsion Of Nail Plate - One 97365 04/08/19 16 Theater Provider DoD Anesthesia Lower Leg / Ankle / Foot For Procedures On Skin Anesthesia Lower Leg / Ankle / Foot For Procedures On Skin 52428 04/08/19 16 Theater Provider [facility] Implantable Contraceptive Capsules Removal Implantable Contraceptive Capsules Removal 41328 02/14/20 15 SAQIB SILVA [facility] Screening Test Of Visual Acuity, Quantitative, Bilateral Screening Test Of Visual Acuity, Quantitative, Bilateral 07394 09/23/19 13 LUIGI HERRERA [facility] Skin Test Anergy Tuberculin Intradermal Skin Test Anergy Tuberculin Intradermal 14648 09/23/19 13 KITTY BATEMAN [facility] Social History Combined list of available smoking, tobacco, and other social history from Department of Defense and Veterans Affairs facilities. Social History Type Response Date Comment Sourc e This section is an empty social history section. DoD Assessment and Plan Combined list of future care activities from Department of Defense and Veterans Affairs facilities (e.g., assessment and plan notes, appointments, orders, and referrals). Additional future care activities may be listed in the Plan of Care section. Result Assessment and Plan Date Source Assessment and Plan No data available for this section 03/29/2024 Ambulatory Pharmacy Functional Status Combined list of recent functional and cognitive assessments recorded at Department of Defense and Veterans Affairs (VA).VA Functional Farrar Measurement (FIM) Scale: 1 = Total Assistance (Subject = 0% +), 2 = Maximal Assistance (Subject = 25% +), 3 = Moderate Assistance (Subject = 50% +), 4 = Minimal Assistance (Subject = 75% +), 5 = Supervision, 6 = Modified Farrar (Device), 7 = Complete Farrar (Timely, Safely). Assessment Date/Time Source Assessment Type Assessment Skill Assessment Score Assessment Details No data available for this section
--- OUTSIDE RECORDS SUMMARY | 2024-03-28 21:23 | XMS_ITS ---
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 Name Role Phone DANISH LIRIANO Unavailable [phone] REASON FOR VISIT zepbound MEDICATIONS Medication SIG (Take, Route, Fr equency, Duration) Notes Start Date End Date Status Zepbound 12.5 MG/0.5ML 12.5mg Subcutaneo us weekly for 30 days Active Encounters Encounter Location Date Provider Diagnosis [facility] [address] [address] 01/03/2024 DANISH NAGYRICKEYLuiza Overweight (BMI 25.0-29.9) E66.3 ASSESSMENTS Encounter Date Diagnosis Assessment Notes Treatment Notes Treatment Clinical Notes Section Notes 01/03/2024 Overweight (BMI 25.0-29.9) (ICD-10 - E66.3) PLAN OF TREATMENT Medication Medication Name Sig Start Date Stop Date Notes Zepbound 12.5 MG/0.5ML 12.5mg Subcutaneo us weekly for 30 days Next Appt Details Provider Name:AN ERIC , 03/31/2024 09:45:00 AM, [address] [address], [place], [address], Progress Notes * Tsyon ARRIAGARubyOB: (28 yo F)Acc No.[id number]:01/03/2024 Patient:??Sumit ARRIAGA ris :1995?Age:28 Y?Sex:Fe male Address:[address] [place] [id number] * Refills?? Refill Zepbound Solution Auto-injector, 12.5 MG/0.5ML, Subcutaneous, 4 Pen Needle, 12.5mg, weekly, 30 days, Refills=0 Subjective: * Chief Complaints: * ?Zepbound * Medical History:?? * Surgical History:?? * Hospitalization/Major Diagno stic Procedure:?? * Medications:?? Objective: Assessment: * Assessment: 1.??Overweight (BMI 25.0-29. 9) - E66.3?? Plan: * Treatment: * Procedure Codes:?? * true * Date:??
--- OUTSIDE RECORDS SUMMARY | 2024-03-28 21:23 | XMS_ITS ---
Author Organization [facility] Address [address] [place] [address] Care Team Providers Care Revenue Agent Name Role Phone DANISH LIRIANO Unavailable [phone] AN ERIC Unavailable [phone] ALLERGIES No Known Allergies REASON FOR VISIT pt here for wt mgt seca done pt received flu vaccine in left deltoid pt tolerated well with no reactions MEDICATIONS Medication SIG (Take, Route, Frequency, Duration) Notes Start Date End Date Status Zepbound 15 MG/0.5ML 12.5mg Subcutaneous weekly for 30 days Active Inflectra 100 MG as directed Intravenous Active Ondansetron HCl 8 MG 1 tablet as needed Orally Once a day for 30 days Not-Taking Zepbound 10 MG/0.5ML inject 10mg Subcutaneous once a week for 30 days PA approved ok to increase to 10mg from 7.5mg 07/21/2023 Not-Taking IMMUNIZATIONS Vaccine Route Administration Date Status Comme nts influenza IM Intramuscular 02/02/2024 Administered SOCIAL HISTORY Tobacco Use: Social History Observation Description Date Details (start date - stop date) Never Smoker NA - NA Sex Assigned At : Social History Observation Description Sex Assigned At Unknown Tobacco Use/Smoking Question Answer Notes 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9,adult (ICD-10 - Z68.27) Patient [...] Dictation was accomplished with the use of [employer] voice recognition software, which is prone to [...] Dictation was accomplished with the use of [employer] voice recognition software, which is prone to [...] Dictation was accomplished with the use of [employer] voice recognition software, which is prone to medical misidentifications and grammatical errors. This are unintentional and the practitioner does try to identify and correct these, but some could still be present. Please do not hesitate to contact practitioner for clarification. 02/02/2024 Encounter for immunization (ICD-10 - Z23) [...] Dictation was accomplished with the use of [employer] voice recognition software, which is prone to medical misidentifications and grammatical errors. This are unintentional and the practitioner does try to identify and correct these, but some could still be present. Please do not hesitate to contact practitioner for clarification. PLAN OF TREATMENT Next Appt Details Provider Name:AN ERIC , 03/31/2024 09:45:00 AM, [address] [facility], [facility] [address], [place], [address], Progress Notes * Tyson ARRIAGAisDOB: (28 yo F)Acc No.[id number]:02/02/2024 Patient:??Sumit ARRIAGA ris Provider:??AN ERIC :1995?Age:28 Y?Sex:Fe male Date:02/02/2024 Address:[address] [place] [address], [place] [id number] Subjective: * Chief Complaints: * ?1. Pt here for wt mgt seca done pt received flu vaccine in left deltoid pt tolerated well with no reactions. * HPI: ?Constitutional:? Denise is a 28-year-old female with history of overweight who presents to the office today for weight management follow-up. She was last seen in the office in 01/03/2024 at which time weight was 181 pounds, BMI 27.52. Dose of Zepbound increased last visit to 15 mg once weekly. Has been tolerating medication well without side effects. Denies nausea, constipation, abdominal pain, or heartburn. Reports good suppression of her appetite on this current dose. Has begun participating in cycling classes for exercise. Also been walking. Reports balanced diet. States could do better with water intake. * ROS:?Constitutional: Denies sudden weight loss, fever, night sweats, excessive fatigue, or changes in sleep. ???CV: Denies chest pain or heart palpitations. ???Respiratory: Denies SOB, wheezing, or pleuritic pain. ???GI: Denies n/v/d, constipation, blood in stools, pain associated with eating, indigestion, or difficulty/pain with swallowing. ???MSK: Denies back pain, joint deformity/pain, or muscle weakness. ???Integumentary: Denies skin changes. ???Endocrine: Denies polyuria, polyphagia, or polydipsia. No heat/cold intolerance or excessive thirst. * Medical History:??Medical Hi story Verified. * Surgical History:??Denies [facility] st Surgical History. * Hospitalization/Major Diagno stic Procedure:??Denies Past Hospitalization. * Family History:??Father: dec eased.??Mother: alive 62 yrs.??2 brother(s) . .?? dad heart attack mom diabetes. 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 * Medications:??Taking Zepboun d 15 MG/0.5ML Solution Auto-injector 12.5mg Subcutaneous weekly , Taking Inflectra 100 MG Solution Reconstituted as directed Intravenous , Not-Taking Ondansetron HCl 8 MG Tablet 1 tablet as needed Orally Once a day , Not-Taking Zepbound 10 MG/0.5ML Solution Auto-injector inject 10mg Subcutaneous once a week , Notes to Pharmacist: CHRISTOPH approved ok to increase to 10mg from 7.5mg, Medication List reviewed and reconciled with the patient * Allergies:??N.K.D.A. Objective: * Vitals:??HR:80/min, BP:128/8 2mm Hg, Wt:180lbs, BMI:27.37Index, Ht: 68 in, Oxygen sat %:98%. * Physical Examination:?General: Age appropriate, well-appearing 28-year-old female in no acute distress, speaking in full sentences without respiratory compromise. Well groomed, well developed. Alert, interactive. ?Skin: Warm, dry and intact. No lesions/rashes/erythema. ?HEENT: Normocephalic/atraumatic. ?Neck/Thyroid: Thyroid symmetrical, nonenlarged, and free of nodules to palpation. ?Lungs: Clear to auscultation bilaterally. ?CV: Regular rate and rhythm without murmurs, rubs, or gallops. 2+ radial pulses bilaterally. ?Neuro: CN II-XII grossly intact. Steady gait with non-assisted ambulation observed. ?Psych: Stable mood and affect. Assessment: * Assessment: 1.??Overweight - E66.3 (Prim drew)??2.??BMI 27.0-27.9,adult - Z68.27??3.??Nutritional counseling - Z71.3??4.??Encounter for immunization - Z23?? Patient is here for weight m anagement follow-up. We focused on significance of healthy [...] Dictation was accomplished with the use of [employer] voice recognition software, which is prone to medical misidentifications and grammatical errors. This are unintentional and the practitioner does try to identify and correct these, but some could still be present. Please do not hesitate to contact practitioner for clarification. Plan: * Treatment: * Immunizations:? influenza : 0.5 mL (Dose No:1) (Route: Intramuscular) given by Jose Briseno on Left Deltoid (Encounter for immunization) * Procedure Codes:??G0447 FCE- FCE BEHAVRL CNSL OBESITY 15 MIN, Modifiers: 59 , 63494 FLU VAC NO PRSV 4 ANUSHKA 3 YRS * Images: Billing Information: * Visit Code:?? 20961 Office Visit, Est Pt., Level 4. * Procedure Codes:?? G0447 FCE-FCE BEHAVRL CNSL OBESITY 15 MIN. Modifiers: 59 70968 FLU VAC NO PRSV 4 ANUSHKA 3 YRS. * Sign off status: Completed true * Provider:??AN ERIC Date:?? 024 History and Physical Notes * HPI (History of Present Illness) Category Sub-Category Detail Notes Category Not es Constitutional Denise i s a 28-year-old female with history of overweight who presents to the office today for weight management follow-up. She was last seen in the office in 01/03/2024 at which time weight was 181 pounds, BMI 27.52. Dose of Zepbound increased last visit to 15 mg once weekly. Has been tolerating medication well without side effects. Denies nausea, constipation, abdominal pain, or heartburn. Reports good suppression of her appetite on this current dose. Has begun participating in cycling classes for exercise. Also been walking. Reports balanced diet. States could do better with water intake. Physical Examination Category Sub-Category Detail Notes Section Note s General: Age appropriate, well-appearing 28-year-old female in no acute distress, speaking in full sentences without respiratory compromise. Well groomed, well developed. Alert, interactive. Skin: Warm, dry and intact. No lesions/rashes/erythema. HEENT: Normocephalic/atraumatic. Neck/Thyroid: Thyroid symmetrical, nonenlarged, and free of nodules to palpation. Lungs: Clear to auscultation bilaterally. CV: Regular rate and rhythm without murmurs, rubs, or gallops. 2+ radial pulses bilaterally. Neuro: CN II-XII grossly intact. Steady gait with non-assisted ambulation observed. Psych: Stable mood and affect.
[2024-03-28 21:26] VITALS: BP 123/97; PULSE 79; RESP 18; TEMP 36.8; O2SAT 100
== END 2024-03-28 21:26 | disposition home or self-care (01) ==
PROVIDERS: Emergency Provider Emergency Medicine Emergency Medical Services
DX: B02.9 Zoster without complications (principal)
CPT/HCPCS: 99282; 99283